=== PATIENT | female | born 1960 | race Caucasian/White ===

== ENCOUNTER 2018-01-06 14:00 | Outpatient (CLI) | payer BC ==
[2018-01-06 15:40] LABS: BASOPHILS # (AUTO) 0.1 X10'3 (0-0.2); BASOPHILS % (AUTO) 0.6 % (0-1); EOSINOPHILS # (AUTO) 0.4 X10'3 (0-0.9); EOSINOPHILS % (AUTO) 3.9 % (0-6); LYMPHOCYTES # (AUTO) 3.4 X10'3 (1.1-4.8); LYMPHOCYTES % (AUTO) 34.9 % (21-51); MEAN CORPUSCULAR HEMOGLOBIN 32.5 PG (27.0-31.0); MEAN CORPUSCULAR HGB CONC 33.9 % (33.0-36.5); MEAN CORPUSCULAR VOLUME 95.9 FL (78-98); MEAN PLATELET VOLUME 7.7 FL (7.4-10.4); MONOCYTES # (AUTO) 0.8 X10'3 (0-0.9); MONOCYTES % (AUTO) 8.4 % (2-12); NEUTROPHILS # (AUTO) 5.1 X10'3 (1.8-7.7); NEUTROPHILS % (AUTO) 52.2 % (42-75); PRE OP HEMATOCRIT 45.9 % (35.0-45.0); PRE OP HEMOGLOBIN 15.6 g/dL (12.0-16.0); PRE OP PLATELET COUNT 346 X10'3 (140-440); RED BLOOD COUNT 4.79 X10'6 (4.20-5.60); RED CELL DISTRIBUTION WIDTH 14.3 % (11.5-14.5)
[2018-01-06 15:41] LABS: CLARITY,URINE SLIGHTLY CLOUDY (Clear); COLOR,URINE YELLOW (Yellow); GLUCOSE, URINE NEGATIVE (Neg); KETONES,URINE NEGATIVE (Neg); LEUKOCYTE ESTERASE ,URINE SMALL (Neg); NITRITES, URINE POSITIVE (Neg); OCCULT BLOOD,URINE SMALL (Neg); PH,URINE 5.5 (4.8-8.0); PROTEIN,URINE NEGATIVE (Neg); UROBILINOGEN,URINE 0.2 E.U/dL (0.2-1.0)
[2018-01-06 15:53] LABS: UA COLLECTION TYPE CLN CATCH MIDSTREAM
[2018-01-06 15:54] LABS: BACTERIA,URINE 3+ /HPF (Neg); MUCUS STRANDS NONE SEEN /LPF (Neg); RBC,URINE NONE SEEN /HPF (0-2); SQUAMOUS EPITHELIAL CELL,UR MODERATE /LPF (FEW); WBC,URINE 0-4 /HPF (0-4)
[2018-01-06 15:56] LABS: ALBUMIN 3.4 G/DL (3.4-5.0); ALBUMIN/GLOBULIN RATIO 0.9 (1.1-1.5); ALKALINE PHOSPHATASE 85 IU/L (46-116); BLOOD UREA NITROGEN 13 MG/DL (7-18); BUN/CREATININE RATIO 14.8 (6.6-38.0); CALCIUM 9.3 MG/DL (8.5-10.1); CHLORIDE 105 MMOL/L (99-107); CREATININE 0.88 MG/DL (0.40-0.90); PRE OP ALT 25 U/L (30-65); PRE OP ANION GAP 4 (8-16); PRE OP AST 16 U/L (10-37); PRE OP BILIRUB, TOTAL 0.2 MG/DL (0.0-1.0); PRE OP GLUCOSE 107 MG/DL (70-104); PRE OP POTASSIUM 4.2 MMOL/L (3.4-5.1); PRE OP SODIUM 141 MMOL/L (135-145); TOTAL CARBON DIOXIDE 32.2 MMOL/L (24-32); TOTAL PROTEIN 7.3 G/DL (6.4-8.2); eGFR 66 ML/MIN
[2018-01-06] MEDS ORDERED: SOLI10TA2 PO (16:29)
[2018-01-06] MEDS ORDERED: AMIT-1 PO (16:29)
[2018-01-06] MEDS ORDERED: TRAUMEEL (16:29)
[2018-01-06] MEDS ORDERED: ESTR0.6261 PO (16:29)
[2018-01-06] MEDS ORDERED: DICL100G15 TOP (16:29)
[2018-01-06] MEDS ORDERED: PREVCR VG (16:29)
[2018-01-06] MEDS ORDERED: CALC-1197 PO (16:29)
[2018-01-06] MEDS ORDERED: PREG100C PO (16:29)
[2018-01-06] MEDS ORDERED: CELE-85 PO (16:29)
[2018-01-06] MEDS ORDERED: ASPI-611 PO (16:29)
[2018-01-06] MEDS ORDERED: TRAM300T23 PO (16:29)
[2018-01-06] MEDS ORDERED: COL RITE PO (16:29)
[2018-01-06] MEDS ORDERED: CLOB15CR4 TOP (16:29)
[2018-01-06] MEDS ORDERED: MULT-269 PO (16:29)
[2018-01-06] MEDS ORDERED: DULO60CA64 PO (16:29)
[2018-01-06] MEDS ORDERED: LEVO75TA PO (16:29)
[2018-01-06] MEDS ORDERED: CALC625T (16:29)
[2018-01-06] MEDS ORDERED: BACL10TA2 (16:29)
== END 2018-01-06 23:59 | disposition home or self-care (01) ==
LOC: PRE-OP 14:00 → EDSTATUS 14:10 → PRE-OP 23:59 → EDSTATUS 01-12 10:30
PROVIDERS: ATTEND Orthopaedic Surgery
DX: Z01.818 Encounter for other preprocedural examination (principal); F17.200 Nicotine dependence, unspecified, uncomplicated; R79.89 Other specified abnormal findings of blood chemistry; Z96.612 Presence of left artificial shoulder joint
CPT/HCPCS: 36415; 80053; 81001; 85025; 85610; 85730; 87070; 87077; 87088; 87186

== ENCOUNTER 2018-02-02 11:10 | Inpatient (IN) | payer BC ==
[2018-01-27 15:38] LABS: BASOPHILS % (AUTO) 0.4 % (0-1); EOSINOPHILS # (AUTO) 0.4 X10'3 (0-0.9); EOSINOPHILS % (AUTO) 3.6 % (0-6); LYMPHOCYTES # (AUTO) 3.3 X10'3 (1.1-4.8); LYMPHOCYTES % (AUTO) 32.9 % (21-51); MEAN CORPUSCULAR HEMOGLOBIN 32.9 PG (27.0-31.0); MEAN CORPUSCULAR HGB CONC 33.8 % (33.0-36.5); MEAN CORPUSCULAR VOLUME 97.1 FL (78-98); MEAN PLATELET VOLUME 7.7 FL (7.4-10.4); MONOCYTES # (AUTO) 0.8 X10'3 (0-0.9); MONOCYTES % (AUTO) 7.8 % (2-12); NEUTROPHILS # (AUTO) 5.5 X10'3 (1.8-7.7); NEUTROPHILS % (AUTO) 55.3 % (42-75); PRE OP HEMOGLOBIN 15.2 g/dL (12.0-16.0); PRE OP PLATELET COUNT 322 X10'3 (140-440); RED BLOOD COUNT 4.63 X10'6 (4.20-5.60); RED CELL DISTRIBUTION WIDTH 14.5 % (11.5-14.5)
[2018-01-27 16:03] LABS: ALBUMIN 3.3 G/DL (3.4-5.0); ALBUMIN/GLOBULIN RATIO 0.9 (1.1-1.5); ALKALINE PHOSPHATASE 86 IU/L (46-116); BLOOD UREA NITROGEN 15 MG/DL (7-18); BUN/CREATININE RATIO 16.3 (6.6-38.0); CALCIUM 8.8 MG/DL (8.5-10.1); CHLORIDE 105 MMOL/L (99-107); CREATININE 0.92 MG/DL (0.40-0.90); PRE OP ALT 22 U/L (30-65); PRE OP ANION GAP 9 (8-16); PRE OP AST 21 U/L (10-37); PRE OP BILIRUB, TOTAL 0.3 MG/DL (0.0-1.0); PRE OP GLUCOSE 107 MG/DL (70-104); PRE OP SODIUM 143 MMOL/L (135-145); TOTAL CARBON DIOXIDE 28.7 MMOL/L (24-32); TOTAL PROTEIN 6.9 G/DL (6.4-8.2); eGFR 63 ML/MIN
[2018-02-02] VITALS (21 sets, daily range): BP systolic 84–147; BP diastolic 44–89
[~2018-02-02] VITALS: Ht 172.7 cm; Wt 106.6 kg
[~2018-02-02 11:10] MED LIST: AMIT-189 PO; ASPI-611 PO; CALC-1197 PO; CELE-85 PO; DILT240C96 PO; DOCU250C4 PO; DULO60CA64 PO; ESTR0.6261 PO; LEVO75TA PO; MULT-269 PO; PREG100C PO; SOLI10TA2 PO; TRAM300T23 PO; acetaminophen 325mg tablet PO ONE; ceFAZolin inj. 2,000 MG in normal saline 100ml IV soln 100 ML IV ONE; famotidine 20mg tablet PO ONE; gabapentin 300mg capsule PO ONE; metoclopramide 5 mg/ml inj IV ONE; oxyCODONE SR 10mg (sust. release) tab PO ONE; ringers solution, lacted 1,000 ML IV SCH; tranexamic acid inj. 1,000 MG in normal saline 100ml IV soln 90 ML IV ONE; vancomycin inj 1,500 MG in normal saline 300ml IV soln IV ONE
[2018-02-02] MEDS ORDERED: desflurane 240ml liquid inh. IH ONE (13:56)
[2018-02-02] MEDS ORDERED: BUPIVAcaine/PF 7.5mg/ml (0.75%) 10ml vial ONE (14:05)
[2018-02-02] MEDS ORDERED: fentaNYL/PF 50MCG/1 ML 2ML syringe ONE (14:06)
[2018-02-02] MEDS ORDERED: midazolam 2 mg/2 ml injection ONE (14:08)
[2018-02-02] MEDS ORDERED: LIDOcaine 2% 5ml jelly ONE (14:17)
[2018-02-02] MEDS ORDERED: rocuronium 10mg/ml inj IV ONE (14:39)
[2018-02-02] MEDS ORDERED: propofol inj 20 ML IV ONE (14:39)
[2018-02-02] MEDS ORDERED: 0.9 % SODIUM CHLORIDE 10 ML VIAL ONE ×2 (14:39)
[2018-02-02] MEDS ORDERED: dexamethasone sod phosphate 4mg/ml inj. ONE (14:39)
[2018-02-02] MEDS ORDERED: LIDOcaine 1%/PF (10mg/ml) 5ml vial ONE (14:39)
[2018-02-02] MEDS ORDERED: ePHEDrine 50MG/ML INJ. ONE (14:40)
[2018-02-02] MEDS ORDERED: morphine 10mg/ml inj. ONE (15:03)
[2018-02-02] MEDS: ceFAZolin 1000mg inj ONE ×2 (15:33→15:34)
[2018-02-02] MEDS ORDERED: Thrombin (Bovine) 5,000 unit vial TP ONE (15:40)
[2018-02-02] MEDS ORDERED: vancomycin 1,000mg inj ONE (15:56)
[2018-02-02] MEDS ORDERED: magnesium hydroxide 30ml (MOM) UD suspension PO PRN (16:20)
[2018-02-02] MEDS ORDERED: diphenhydrAMINE 25mg capsule PO PRN ×2 (16:20)
[2018-02-02] MEDS ORDERED: oxyCODONE IR 5mg (immed. release) tablet PO PRN ×2 (16:20)
[2018-02-02] MEDS ORDERED: HYDROmorphone inj. 0.5 MG/0.5 ML DISP.SYRIN IV PRN ×2 (16:20)
[2018-02-02] MEDS ORDERED: ondansetron/PF 4mg/2ml inj IV PRN (16:20)
[2018-02-02] MEDS ORDERED: bisacodyl 10mg suppository rectal RC PRN (16:20)
[2018-02-02] MEDS ORDERED: acetaminophen 325mg tablet PO PRN (16:20)
[2018-02-02] MEDS ORDERED: vancomycin/NS 1 GM ADD-VANTAGE 250 ML IV SCH (20:00)
[2018-02-02] MEDS ORDERED: HYDROmorphone 1 mg/ml syringe IV PRN ×2 (20:17)
[2018-02-02] MEDS: acetaminophen 325mg tablet PO SCH (20:54)
[2018-02-02] MEDS: pregabalin 25mg capsule PO SCH (20:54)
[2018-02-02] MEDS: duloxetine 30mg CAPSULE.DR PO SCH (20:54)
[2018-02-02] MEDS: potassium cl 20mEq in 1/2 NS 1,000 ML IV SCH (20:54)
[2018-02-02] MEDS: gabapentin 300mg capsule PO SCH (20:55)
[2018-02-02] MEDS ORDERED: sennosides 8.6mg tablet PO SCH (21:00)
[2018-02-02] MEDS ORDERED: amitryptiline 50mg tablet PO SCH (21:00)
[2018-02-02] MEDS: ceFAZolin 1GM/D5W- ADD-VANTAGE 50 ML IV SCH (23:08)
[2018-02-03 02:00] VITALS: BP 98/53
[2018-02-03] MEDS: acetaminophen 325mg tablet PO SCH ×2 (02:00→07:53)
[2018-02-03 05:00] VITALS: BP 91/57
[2018-02-03 05:52] LABS: BASOPHILS % (AUTO) 0.3 % (0-1); EOSINOPHILS % (AUTO) 0.1 % (0-6); HEMATOCRIT 40.5 % (35.0-45.0); HEMOGLOBIN 13.9 g/dl (12.0-16.0); LYMPHOCYTES # (AUTO) 1.8 X10'3 (1.1-4.8); LYMPHOCYTES % (AUTO) 13.3 % (21-51); MEAN CORPUSCULAR HGB CONC 34.3 % (33.0-36.5); MEAN CORPUSCULAR VOLUME 96.2 FL (78-98); MEAN PLATELET VOLUME 7.7 FL (7.4-10.4); MONOCYTES # (AUTO) 0.7 X10'3 (0-0.9); MONOCYTES % (AUTO) 5.3 % (2-12); NEUTROPHILS # (AUTO) 10.9 X10'3 (1.8-7.7); PLATELET COUNT 260 X10'3 (140-440); RED BLOOD COUNT 4.21 X10'6 (4.20-5.60); RED CELL DISTRIBUTION WIDTH 14.6 % (11.5-14.5); WHITE BLOOD COUNT 13.5 X10'3 (4.5-11.0)
[2018-02-03] MEDS ORDERED: levoTHYROXINE 75mcg tablet PO SCH (07:00)
[2018-02-03] MEDS: ceFAZolin 1GM/D5W- ADD-VANTAGE 50 ML IV SCH (07:50)
[2018-02-03] MEDS: pregabalin 25mg capsule PO SCH (07:52)
[2018-02-03] MEDS: duloxetine 30mg CAPSULE.DR PO SCH (07:52)
[2018-02-03] MEDS: gabapentin 300mg capsule PO SCH (07:52)
[2018-02-03] MEDS ORDERED: diltiazem CD 120mg capsule (once-daily) PO SCH (08:00)
[2018-02-03] MEDS ORDERED: celeCOXIB 100mg capsule PO SCH ×2 (08:00→20:00)
[2018-02-03] MEDS ORDERED: calcium carbonate/vitamin D3 tablet PO SCH (08:00)
[2018-02-03] MEDS ORDERED: enoxaparin 40mg/0.4ml syringe SQ SCH (08:00)
[2018-02-03] MEDS: potassium cl 20mEq in 1/2 NS 1,000 ML IV SCH ×2 (08:01→08:16)
[2018-02-03] MEDS ORDERED: estrogen, conjugated 0.625mg tablet PO SCH (20:00)
[2018-02-04] MEDS ORDERED: acetaminophen 325mg tablet PO PRN (16:20)
== END 2018-02-03 13:07 | disposition home or self-care (01) | DRG 483 ==
LOC: PAS IN 11:10 → EDSTATUS 14:30 → ORTHO 4S 17:50
PROVIDERS: ADMIT Orthopaedic Surgery; ATTEND Orthopaedic Surgery
PROC: 3E0T3BZ Introduction of Anesthetic Agent into Peripheral Nerves and Plexi, Percutaneous Approach (ICD-10-PCS; 2018-02-02)
PROC: 0RRK0JZ Replacement of Left Shoulder Joint with Synthetic Substitute, Open Approach (ICD-10-PCS; principal; 2018-02-02 13:56)
DX: M19.012 Primary osteoarthritis, left shoulder (principal); Z88.1 Allergy status to other antibiotic agents; Z88.5 Allergy status to narcotic agent; Z79.899 Other long term (current) drug therapy; Z79.82 Long term (current) use of aspirin
CPT/HCPCS: 0232T; Z7506; 36415; 73020; 80053; 84443; 85025; 87070; 93005; 97110; 97116; 97161; A4565; A7000; C1713; C1758; C1776; J0690; J1100; J1650; J2001; J2250; J2270; J2704; J2765; J3010; J3370; J3490; J7030; J7120

== ENCOUNTER 2021-07-30 06:36 | Inpatient (IN) | payer BC ==
[2021-07-21 15:47] LABS: BASOPHILS # (AUTO) 0.1 X10'3 (0-0.2); BASOPHILS % (AUTO) 1.1 % (0-1); EOSINOPHILS # (AUTO) 0.2 X10'3 (0-0.9); EOSINOPHILS % (AUTO) 2.8 % (0-6); LYMPHOCYTES % (AUTO) 34.3 % (21-51); MEAN CORPUSCULAR HEMOGLOBIN 32.2 PG (27.0-31.0); MEAN CORPUSCULAR HGB CONC 33.2 g/dL (33.0-36.5); MEAN PLATELET VOLUME 7.2 FL (7.4-10.4); MONOCYTES # (AUTO) 0.9 X10'3 (0-0.9); MONOCYTES % (AUTO) 10.4 % (2-12); NEUTROPHILS # (AUTO) 4.6 X10'3 (1.8-7.7); NEUTROPHILS % (AUTO) 51.4 % (42-75); PRE OP HEMATOCRIT 45.2 % (35.0-45.0); PRE OP PLATELET COUNT 345 X10'3 (140-440); RED BLOOD COUNT 4.66 X10'6 (4.20-5.60); RED CELL DISTRIBUTION WIDTH 14.5 % (11.5-14.5)
[2021-07-21 16:08] LABS: ALBUMIN 3.5 G/DL (3.4-5.0); ALKALINE PHOSPHATASE 89 IU/L (46-116); BLOOD UREA NITROGEN 14 MG/DL (7-18); BUN/CREATININE RATIO 13.7 (6.6-38.0); CALCIUM 8.5 MG/DL (8.5-10.1); CHLORIDE 105 MMOL/L (99-107); CREATININE 1.02 MG/DL (0.40-0.90); PRE OP ALT 33 U/L (30-65); PRE OP ANION GAP 8 (8-16); PRE OP AST 21 U/L (10-37); PRE OP BILIRUB, TOTAL 0.4 MG/DL (0.0-1.0); PRE OP GLUCOSE 97 MG/DL (70-104); PRE OP POTASSIUM 4.2 MMOL/L (3.4-5.1); PRE OP SODIUM 142 MMOL/L (135-145); TOTAL CARBON DIOXIDE 29.1 MMOL/L (24-32); TOTAL PROTEIN 6.9 G/DL (6.4-8.2); eGFR 55 ML/MIN
[~2021-07-30] VITALS: Ht 172.7 cm; Wt 104.0 kg
[2021-07-30] VITALS (34 sets, daily range): BP systolic 98–133; BP diastolic 52–74
[~2021-07-30 06:36] MED LIST changes: -ASPI-611 PO; +ATOR-2 PO; -CALC-1197 PO; +CALC-1215 PO; +CLIN300C56 PO; -DOCU250C4 PO; +DOCU250C96 PO; -DULO60CA64 PO; +DULO60CA65 PO; +EZET10TA6 PO; +MAGN400C PO; +PSYL0.4C2 PO; -acetaminophen 325mg tablet PO ONE; +albuterol 2.5 MG/3 ML nebule NEB ONE; -ceFAZolin inj. 2,000 MG in normal saline 100ml IV soln 100 ML IV ONE; +cefazolin/dext.iso 2gm/50ml IV ONE; -gabapentin 300mg capsule PO ONE; -metoclopramide 5 mg/ml inj IV ONE; -oxyCODONE SR 10mg (sust. release) tab PO ONE; +tranexamic acid inj. 1,000 MG in 0.7% saline 100 ML PMX IV ONE; -tranexamic acid inj. 1,000 MG in normal saline 100ml IV soln 90 ML IV ONE; +vancomycin 1,500 MG in NS 300ml IV soln IV ONE; -vancomycin inj 1,500 MG in normal saline 300ml IV soln IV ONE
[2021-07-30] MEDS ORDERED: vancomycin 1,000mg inj ONE (07:26)
[2021-07-30] MEDS ORDERED: Thrombin (Bovine) 5,000 unit vial TP ONE (07:45)
[2021-07-30] MEDS ORDERED: fentaNYL/PF 50MCG/1 ML 2ML syringe ONE ×2 (08:19→09:31)
[2021-07-30] MEDS ORDERED: midazolam 1 mg/ML 2ml injection ONE ×2 (08:19→08:20)
[2021-07-30] MEDS ORDERED: sevoflurane 250ml liquid IH ONE (08:29)
[2021-07-30] MEDS ORDERED: ePHEDrine 50MG/ML INJ. ONE (08:29)
[2021-07-30] MEDS ORDERED: rocuronium 10mg/ml inj IV ONE (08:31)
[2021-07-30] MEDS ORDERED: acetaminophen 1,000mg/100ml IV 100 ML IV ONE (08:31)
[2021-07-30] MEDS ORDERED: neostigmine methylsulfate 1 MG/ML 10ml vial ONE (08:31)
[2021-07-30] MEDS ORDERED: propofol inj 20 ML IV ONE (08:31)
[2021-07-30] MEDS ORDERED: glycopyrrolate 0.2mg/ml inj ONE (08:31)
[2021-07-30] MEDS ORDERED: dexamethasone sod phosphate 4mg/ml inj. ONE (08:31)
[2021-07-30] MEDS ORDERED: ondansetron/PF 4mg/2ml inj ONE (08:31)
[2021-07-30] MEDS ORDERED: LIDOcaine 1%/PF 5ML 10 MG/ML VIAL ONE (08:31)
[2021-07-30] MEDS ORDERED: ROPIVAcaine 0.2%/PF PUMP/bolus 545 ML INTERSCALE SCH (09:20)
[2021-07-30] MEDS ORDERED: morphine 2 MG/ML inj. syringe IV PRN (09:20)
[2021-07-30] MEDS ORDERED: ROPIVAcaine 0.2% (10 MG/5 ML) BOLUS INJECTION INTERSCALE PRN (09:20)
[2021-07-30] MEDS ORDERED: ondansetron/PF 4mg/2ml inj IV PRN ×2 (09:20→12:55)
[2021-07-30] MEDS ORDERED: morphine 4 MG/ML inj SYRINge IV PRN (09:20)
[2021-07-30] MEDS ORDERED: proCHLORperazine 10 MG/2 ml inj IV PRN (09:20)
[2021-07-30] MEDS ORDERED: ringers solution, lacted 1,000 ML IV SCH (09:20)
[2021-07-30] MEDS ORDERED: meperidine/PF 25mg/ml syringe IV PRN ×3 (09:20)
--- NOTE | 2021-07-30 11:49 | NUR ---
Received from OR via ORTHO BED WITH [facility] , accompanied by Anesthesiologist SYED and report given by Anesthesiolgist. PATIENT WITH 18G PIV IN LEFT RUNNING LR AT 100. RIGHT SHOULDER DRESSING IS CDI. ONQ NERVE BLOCK SITE PRESENT. PATIENT WITH ANTERIOR SHOULDER WRAP WITH POWDER PACK PRESENT. PATIENT DENIES PAIN AND HAS + CAP REFILL AND +CSM, SCDS DONNED IN RR Addendum: 07/30/21 at 1206 by Mehran Ivy RN, RN Amended: Links added.
[2021-07-30] MEDS ORDERED: bisacodyl 10mg suppository rectal RC PRN (12:55)
[2021-07-30] MEDS ORDERED: HYDROmorphone inj. 0.5 MG/0.5 ML DISP.SYRIN IV PRN (12:55)
[2021-07-30] MEDS ORDERED: acetaminophen 325mg tablet PO PRN (12:55)
[2021-07-30] MEDS ORDERED: diphenhydrAMINE 25mg capsule PO PRN ×2 (12:55)
[2021-07-30] MEDS: potassium cl 20mEq in 1/2 NS 1,000 ML IV SCH ×2 (12:55→20:47)
[2021-07-30] MEDS ORDERED: oxyCODONE IR 5mg (immed. release) tablet PO PRN ×2 (12:55)
[2021-07-30] MEDS ORDERED: HYDROmorphone 1 mg/ml syringe IV PRN (12:55)
[2021-07-30] MEDS ORDERED: magnesium hydroxide 30ml (MOM) UD suspension PO PRN (12:55)
[2021-07-30] MEDS ORDERED: estrogen, conjugated 0.625mg tablet PO SCH ×2 (13:40→14:25)
[2021-07-30] MEDS ORDERED: PSYLLIUM HUSK 0.4 GM PO PRN (13:40)
--- NOTE | 2021-07-30 13:49 | NUR ---
PATIENT HAS MET ALL CRITERIA FOR TRANSFER TO THE SURGICAL FLOOR. VSS. DRESSINGS INTACT. BED LOW, CALL LIGHT PRESENT AND 2 RAILS UP. RN NOT PRESENT TO ACCEPT CARE OF PATIENT AND REPORT HAS BEEN CALLED. ALL QUESTIONS ANSWERED TO ACCEPTING RN. INFORMED KWAME SIDHU WHO TOOK REPORT THAT RN NOT PRESENT AT BEDSIDE. VSS. Addendum: 07/30/21 at 1358 by Mehran Salamanca - THEA RN Amended: Links added.
[2021-07-30] MEDS: acetaminophen 325mg tablet PO SCH ×2 (14:10→20:43)
[2021-07-30] MEDS: gabapentin 300mg capsule PO SCH ×2 (14:10→20:44)
[2021-07-30] MEDS: ceFAZolin/D5W- 1GM premix 50 ML IV SCH ×2 (15:54→23:45)
[2021-07-30] MEDS ORDERED: tranexamic acid 1gm/0.7% sal. 100 ML IV ONE (16:00)
[2021-07-30] MEDS ORDERED: vancomycin/NS 1 GM ADD-VANTAGE 250 ML IV SCH (20:00)
[2021-07-30] MEDS: pregabalin 25mg capsule PO SCH (20:41)
[2021-07-30] MEDS: docusate sod 250mg capsule PO SCH (20:44)
[2021-07-30] MEDS: duloxetine 30mg CAPSULE.DR PO SCH (20:45)
[2021-07-30] MEDS ORDERED: TRAMADOL 300 MG PO SCH (21:00)
[2021-07-30] MEDS ORDERED: clindamycin 150mg capsule PO SCH (21:00)
[2021-07-30] MEDS ORDERED: sennosides 8.6mg tablet PO SCH (21:00)
[2021-07-30] MEDS ORDERED: amitriptyline 25mg tablet PO SCH (21:00)
[2021-07-31] VITALS: BP_SYST 117; BP_SYST 120; BP_DIAS 66; BP_DIAS 69
[2021-07-31 01:00] VITALS: BP 120/70
[2021-07-31] MEDS: acetaminophen 325mg tablet PO SCH ×2 (02:00→07:48)
[2021-07-31 04:00] VITALS: BP 122/76
[2021-07-31] MEDS: potassium cl 20mEq in 1/2 NS 1,000 ML IV SCH (04:55)
[2021-07-31 06:00] VITALS: BP 137/86
--- NOTE | 2021-07-31 06:25 | NUR ---
Report given , questions answered and plan of care reviewed with Yenni SIDHU .
--- NOTE | 2021-07-31 06:25 | NUR ---
Patient in room [facility]. I have received report from ALFREDO Fontaine and had the opportunity to ask questions and assume patient care.
[2021-07-31 06:56] LABS: BASOPHILS # (AUTO) 0.1 X10'3 (0-0.2); BASOPHILS % (AUTO) 0.5 % (0-1); EOSINOPHILS % (AUTO) 0 % (0-6); HEMATOCRIT 42.6 % (35.0-45.0); HEMOGLOBIN 14.2 g/dl (12.0-16.0); LYMPHOCYTES # (AUTO) 1.9 X10'3 (1.1-4.8); LYMPHOCYTES % (AUTO) 13.6 % (21-51); MEAN CORPUSCULAR HEMOGLOBIN 32.4 PG (27.0-31.0); MEAN CORPUSCULAR HGB CONC 33.3 g/dL (33.0-36.5); MEAN CORPUSCULAR VOLUME 97.3 FL (78-98); MEAN PLATELET VOLUME 7.8 FL (7.4-10.4); MONOCYTES # (AUTO) 1.5 X10'3 (0-0.9); MONOCYTES % (AUTO) 10.9 % (2-12); NEUTROPHILS # (AUTO) 10.5 X10'3 (1.8-7.7); PLATELET COUNT 327 X10'3 (140-440); RED BLOOD COUNT 4.38 X10'6 (4.20-5.60); RED CELL DISTRIBUTION WIDTH 14.3 % (11.5-14.5)
[2021-07-31] MEDS: duloxetine 30mg CAPSULE.DR PO SCH (07:46)
[2021-07-31] MEDS: docusate sod 250mg capsule PO SCH (07:46)
[2021-07-31] MEDS: gabapentin 300mg capsule PO SCH (07:47)
[2021-07-31] MEDS: pregabalin 25mg capsule PO SCH (07:47)
[2021-07-31 07:50] LABS: ANION GAP 11 (8-16); CHLORIDE 107 MMOL/L (99-107); POTASSIUM 4.2 MMOL/L (3.5-5.1); SODIUM 142 MMOL/L (135-145); TOTAL CARBON DIOXIDE 23.8 MMOL/L (24-32)
[2021-07-31] MEDS ORDERED: diltiazem CD 120mg capsule (once-daily) PO SCH (08:00)
[2021-07-31] MEDS ORDERED: ezetimibe 10mg tablet PO SCH (08:00)
[2021-07-31] MEDS ORDERED: levoTHYROXINE 75mcg tablet PO SCH (08:00)
[2021-07-31] MEDS ORDERED: magnesium oxide 400mg tablet PO SCH (08:00)
[2021-07-31] MEDS ORDERED: atorvastatin 20mg tablet PO SCH (08:00)
[2021-07-31] MEDS ORDERED: oxybutynin 5mg tablet PO SCH (08:00)
[2021-07-31] MEDS ORDERED: celeCOXIB 100mg capsule PO SCH ×2 (08:00→20:00)
[2021-07-31] MEDS ORDERED: multivitamins, therapeutics tablet PO SCH (08:00)
[2021-07-31] MEDS ORDERED: aspirin 325mg tablet PO SCH (08:30)
[2021-07-31 11:22] VITALS: BP_SYST 124; BP_SYST 98; BP_DIAS 66; BP_DIAS 76
--- NOTE | 2021-07-31 11:31 | NUR ---
Primary joint consult: Pt s/p Arthroplasty of Reese burkett this admit. Pt unavaialble on assessment, High protein diet ed w/ RD contact info placed in pt chart. Addendum: 07/31/21 at [address] Amended: Links added.
[2021-08-01] MEDS ORDERED: acetaminophen 325mg tablet PO PRN (12:55)
[2021-08-01] MEDS ORDERED: estrogen, conjugated 0.625mg tablet PO SCH (14:25)
== END 2021-07-31 12:25 | disposition home or self-care (01) | DRG 483 ==
LOC: PAS IN 06:36 → SUR 3N 13:56
PROVIDERS: ADMIT Orthopaedic Surgery; ATTEND Orthopaedic Surgery
PROC: 3E0T3BZ Introduction of Anesthetic Agent into Peripheral Nerves and Plexi, Percutaneous Approach (ICD-10-PCS; 2021-07-30)
PROC: 3E0T33Z Introduction of Anti-inflammatory into Peripheral Nerves and Plexi, Percutaneous Approach (ICD-10-PCS; 2021-07-30)
PROC: 0RRJ0JZ Replacement of Right Shoulder Joint with Synthetic Substitute, Open Approach (ICD-10-PCS; principal; 2021-07-30 08:29)
DX: M19.011 Primary osteoarthritis, right shoulder (principal); M85.611 Other cyst of bone, right shoulder; Z79.899 Other long term (current) drug therapy
CPT/HCPCS: 36415; 73020; 80051; 80053; 82948; 84443; 85025; 87081; 93005; 94640; 94664; 94760; 97110; 97161; 97530; G0378; J0131; J0690; J1100; J2250; J2405; J2704; J2710; J2795; J3010; J3370; J3480; J3490; J7040; J7120; U0003; U0005

== ENCOUNTER 2022-03-09 15:40 | Emergency (ER) | payer BC ==
[~2022-03-09] VITALS: Ht 172.7 cm; Wt 106.8 kg
[~2022-03-09 15:40] MED LIST changes: -albuterol 2.5 MG/3 ML nebule NEB ONE; -cefazolin/dext.iso 2gm/50ml IV ONE; -famotidine 20mg tablet PO ONE; -ringers solution, lacted 1,000 ML IV SCH; -tranexamic acid inj. 1,000 MG in 0.7% saline 100 ML PMX IV ONE; -vancomycin 1,500 MG in NS 300ml IV soln IV ONE
[2022-03-09] MEDS ORDERED: ondansetron/PF 4mg/2ml inj IV ONE (18:25)
[2022-03-09] MEDS ORDERED: morphine 4 MG/ML inj SYRINge IV ONE ×2 (18:25→19:35)
[2022-03-09 18:57] LABS: BASOPHILS # (AUTO) 0.2 X10'3 (0-0.2); BASOPHILS % (AUTO) 1.1 % (0-1); EOSINOPHILS % (AUTO) 0.3 % (0-6); HEMATOCRIT 44.1 % (35.0-45.0); HEMOGLOBIN 14.7 g/dl (12.0-16.0); LYMPHOCYTES # (AUTO) 2.4 X10'3 (1.1-4.8); LYMPHOCYTES % (AUTO) 15.3 % (21-51); MEAN CORPUSCULAR HEMOGLOBIN 31.9 PG (27.0-31.0); MEAN CORPUSCULAR HGB CONC 33.3 g/dL (33.0-36.5); MEAN PLATELET VOLUME 7.7 FL (7.4-10.4); MONOCYTES # (AUTO) 0.9 X10'3 (0-0.9); MONOCYTES % (AUTO) 5.8 % (2-12); NEUTROPHILS # (AUTO) 12.3 X10'3 (1.8-7.7); NEUTROPHILS % (AUTO) 77.5 % (42-75); PLATELET COUNT 357 X10'3 (140-440); RED BLOOD COUNT 4.59 X10'6 (4.20-5.60); RED CELL DISTRIBUTION WIDTH 14.3 % (11.5-14.5); WHITE BLOOD COUNT 15.8 X10'3 (4.5-11.0)
[2022-03-09 19:15] LABS: ALANINE AMINOTRANSFERASE 28 U/L (12-78); ALBUMIN 3.7 G/DL (3.4-5.0); ALBUMIN/GLOBULIN RATIO 1.1 (1.1-1.5); ALKALINE PHOSPHATASE 94 IU/L (46-116); ANION GAP 12 (8-16); ASPARTATE AMINO TRANSFERASE 25 U/L (10-37); BILIRUBIN,TOTAL 0.8 MG/DL (0.1-1.0); BLOOD UREA NITROGEN 18 MG/DL (7-18); BUN/CREATININE RATIO 15.9 (6.6-38.0); CALCIUM 8.9 MG/DL (8.5-10.1); CHLORIDE 103 MMOL/L (99-107); CREATININE 1.13 MG/DL (0.40-0.90); GLUCOSE 133 MG/DL (70-104); MAGNESIUM 1.7 MG/DL (1.5-2.4); POTASSIUM 3.8 MMOL/L (3.5-5.1); SODIUM 139 MMOL/L (135-145); TOTAL CARBON DIOXIDE 23.7 MMOL/L (24-32); TOTAL PROTEIN 7.1 G/DL (6.4-8.2); eGFR 49 ML/MIN
[2022-03-09] MEDS ORDERED: propofol 10mg/ml 20ml vial IV ONE (20:50)
[2022-03-09 22:45] VITALS: BP 138/84
[2022-03-09] MEDS ORDERED: acetaminophen 325mg tablet PO ONE (22:55)
== END 2022-03-09 23:15 | disposition home or self-care (01) ==
LOC: ER 15:41
DX: S73.005A Unspecified dislocation of left hip, initial encounter (principal); Z88.5 Allergy status to narcotic agent; Z88.1 Allergy status to other antibiotic agents; Z79.899 Other long term (current) drug therapy; X50.9XXA Other and unspecified overexertion or strenuous movements or postures, initial encounter; Y93.89 Activity, other specified; Y92.89 Other specified places as the place of occurrence of the external cause; Y99.8 Other external cause status
CPT/HCPCS: 27256; 36415; 73502; 80053; 83735; 85025; 93005; 94799; 96374; 96375; 96376; 99152; 99153; 99285; J2270; J2405; J7030; A4620

== ENCOUNTER 2022-05-22 16:28 | Inpatient (IN) | payer BC ==
[~2022-05-22] VITALS: Ht 172.7 cm; Wt 104.5 kg
[2022-05-22] MEDS ORDERED: morphine 4 MG/ML inj SYRINge IV ONE (16:45)
[2022-05-22 17:31] LABS: BASOPHILS # (AUTO) 0.1 X10'3 (0-0.2); BASOPHILS % (AUTO) 0.5 % (0-1); EOSINOPHILS # (AUTO) 0.1 X10'3 (0-0.9); EOSINOPHILS % (AUTO) 0.5 % (0-6); HEMATOCRIT 47.4 % (35.0-45.0); HEMOGLOBIN 16.2 g/dl (12.0-16.0); LYMPHOCYTES # (AUTO) 2.7 X10'3 (1.1-4.8); LYMPHOCYTES % (AUTO) 23.1 % (21-51); MEAN CORPUSCULAR HEMOGLOBIN 32.9 PG (27.0-31.0); MEAN CORPUSCULAR HGB CONC 34.1 g/dL (33.0-36.5); MEAN CORPUSCULAR VOLUME 96.2 FL (78-98); MEAN PLATELET VOLUME 7.3 FL (7.4-10.4); MONOCYTES # (AUTO) 0.9 X10'3 (0-0.9); MONOCYTES % (AUTO) 7.6 % (2-12); NEUTROPHILS # (AUTO) 7.9 X10'3 (1.8-7.7); NEUTROPHILS % (AUTO) 68.3 % (42-75); PLATELET COUNT 340 X10'3 (140-440); RED BLOOD COUNT 4.92 X10'6 (4.20-5.60); WHITE BLOOD COUNT 11.5 X10'3 (4.5-11.0)
[2022-05-22] MEDS ORDERED: ketamine 10mg/ml 20ml inj vial IV ONE (18:00)
[2022-05-22] MEDS ORDERED: ondansetron/PF 4mg/2ml inj IV ONE (18:00)
[2022-05-22 18:02] LABS: ALANINE AMINOTRANSFERASE 23 U/L (12-78); ALBUMIN 3.5 G/DL (3.4-5.0); ALKALINE PHOSPHATASE 93 IU/L (46-116); ANION GAP 8 (8-16); ASPARTATE AMINO TRANSFERASE 24 U/L (10-37); BILIRUBIN,TOTAL 0.4 MG/DL (0.1-1.0); BLOOD UREA NITROGEN 12 MG/DL (7-18); CALCIUM 8.9 MG/DL (8.5-10.1); CHLORIDE 105 MMOL/L (99-107); GLUCOSE 99 MG/DL (70-104); POTASSIUM 4.3 MMOL/L (3.5-5.1); SODIUM 141 MMOL/L (135-145); TOTAL CARBON DIOXIDE 28.3 MMOL/L (24-32); TOTAL PROTEIN 7.1 G/DL (6.4-8.2); eGFR 73 ML/MIN
[2022-05-22] MEDS ORDERED: ketamine 50 mg/ml 10ml vial IV ONE (18:05)
[2022-05-22] MEDS ORDERED: LORazepam 2 mg/ml vial IV ONE (18:55)
[2022-05-22] MEDS ORDERED: diazepam inj 5 MG/ML inj. IV STA ×2 (19:10→19:16)
--- NOTE | 2022-05-22 19:24 | NUR ---
KETAMINE 50 MG IVP
--- NOTE | 2022-05-22 19:27 | NUR ---
LESS KETAMINE GIVEN THAN ORDERED. 100 MG IVP INITIALLY 50 MG IVP INTRAPROCEDURAL
--- NOTE | 2022-05-22 19:37 | NUR ---
SPOUSE JUST ARRIVED INTO ROOM. POC GIVEN TO THE SPOUSE.
[2022-05-22] MEDS ORDERED: HYDROmorphone inj. 0.5 MG/0.5 ML DISP.SYRIN IV PRN (19:55)
[2022-05-22] MEDS ORDERED: bisacodyl 10mg suppository rectal RC PRN (19:55)
[2022-05-22] MEDS ORDERED: magnesium Cl slow-release 64mg tablet PO PRN (19:55)
[2022-05-22] MEDS ORDERED: potassium CL 10mEq/100ml bag 100 ML IV PRN (19:55)
[2022-05-22] MEDS ORDERED: HYDROmorphone/PF 0.2 MG/ML SYRINGE IV PRN (19:55)
[2022-05-22] MEDS ORDERED: magnesium 4gm in 100ml NS 100 ML IV PRN (19:55)
[2022-05-22] MEDS ORDERED: POTASSIUM BICARB 20meq eff tab 20 MEQ TABLET.EFF PO PRN ×2 (19:55)
[2022-05-22] MEDS ORDERED: magnesium hydroxide 30ml (MOM) UD suspension PO PRN (19:55)
[2022-05-22] MEDS ORDERED: magnesium 2GM in 50ml NS 50 ML IV PRN (19:55)
[2022-05-22] MEDS ORDERED: normal saline 1000ml 1,000 ML IV SCH (19:55)
[2022-05-22] MEDS ORDERED: docusate sod 100mg capsule PO SCH (20:00)
[2022-05-22] MEDS ORDERED: K and/or MAG REPLACEMENT MC SCH (20:00)
[2022-05-22] MEDS ORDERED: PREMARIN VG (20:08)
[2022-05-22] MEDS ORDERED: CLOB15CR11 TOP (20:08)
[2022-05-22] MEDS ORDERED: BACL10TA PO (20:08)
[2022-05-22] MEDS ORDERED: DILT180C89 PO (20:08)
[2022-05-22] MEDS ORDERED: ASPI81TA52 PO (20:08)
[2022-05-22] MEDS ORDERED: LEVO112T52 PO (20:08)
[2022-05-22] MEDS ORDERED: NITR0.4T SL (20:08)
--- NOTE | 2022-05-22 20:13 | NUR ---
MATT, SPOUSE: [phone]
[2022-05-22] MEDS ORDERED: propofol 10mg/ml 20ml vial IV ONE ×2 (21:25)
--- NOTE | 2022-05-22 22:20 | NUR ---
Pt up to bedside commode. Did well. She is pleased it is "back in" spouse at bedside. Gave pt food and drink. She is sitting up and eating. Airway patent. AOx4.
--- NOTE | 2022-05-22 23:33 | NUR ---
Dr. Delong at the as her HR increased to [address] rhythm. Pt asymptomatic with it/pain 09/01. Visiting with her spouse. Sitting EOB. Ordered to give her a liter of NS. IVF infusing.
[2022-05-22] MEDS ORDERED: normal saline 1000ml 1,000 ML IV STA (23:34)
[2022-05-23 00:09] VITALS: BP 123/81
--- NOTE | 2022-05-23 00:14 | NUR ---
DR ARSHAD IS AWARE OF THE DC HEARTRATE. THE PATIENT DID RECEIVE THE LITER OF NS AND HAS DRANK 1200 CC OF ICE WATER PRIOR TO D/C AND HAS VOIDED X 2 POST PROCEDURE. PT IS FEELING FINE AND WANTING TO BE DC AND IS ASYMPTOMATIC WITH HER HEART RATE.
== END 2022-05-23 00:20 | disposition home or self-care (01) | DRG 561 ==
LOC: ER 16:28 → ED HOLD 19:57
PROVIDERS: ADMIT Internal Medicine; ATTEND Internal Medicine
PROC: 0SWBXJZ Revision of Synthetic Substitute in Left Hip Joint, External Approach (ICD-10-PCS; principal; 2022-05-22)
DX: T84.021A Dislocation of internal left hip prosthesis, initial encounter (principal); E03.9 Hypothyroidism, unspecified; E78.5 Hyperlipidemia, unspecified; G89.29 Other chronic pain; I10 Essential (primary) hypertension; F32.A Depression, unspecified; G60.0 Hereditary motor and sensory neuropathy; R32 Unspecified urinary incontinence; Y79.2 Prosthetic and other implants, materials and accessory orthopedic devices associated with adverse incidents; Z96.641 Presence of right artificial hip joint; Y92.89 Other specified places as the place of occurrence of the external cause; Z88.5 Allergy status to narcotic agent; Z88.8 Allergy status to other drugs, medicaments and biological substances
CPT/HCPCS: 36415; 73501; 73502; 80053; 83735; 85025; 94799; A4620; G0378; J2060; J2270; J2405; J2704; J3360; J3490; J7030

== ENCOUNTER 2022-06-29 21:59 | Emergency (ER) | payer BC ==
[~2022-06-29] VITALS: Ht 172.7 cm; Wt 106.8 kg
[~2022-06-29 21:59] MED LIST changes: -AMIT-189 PO; +AMIT-286 PO; +ASPI81TA52 PO; +BACL10TA PO; -CLIN300C56 PO; +CLOB15CR11 TOP; +DILT180C89 PO; -DILT240C96 PO; +LEVO112T52 PO; -LEVO75TA PO; +NITR0.4T SL; +PREMARIN VG
[2022-06-29] MEDS ORDERED: propofol 10mg/ml 20ml vial IV ONE (22:30)
[2022-06-30 00:52] VITALS: BP 129/76
== END 2022-06-30 01:12 | disposition home or self-care (01) ==
LOC: ER 21:59
DX: S72.092A Other fracture of head and neck of left femur, initial encounter for closed fracture (principal); Z88.1 Allergy status to other antibiotic agents; Z88.5 Allergy status to narcotic agent; Z79.82 Long term (current) use of aspirin; Z79.899 Other long term (current) drug therapy; X58.XXXA Exposure to other specified factors, initial encounter; Y93.89 Activity, other specified; Y92.89 Other specified places as the place of occurrence of the external cause; Y99.8 Other external cause status
CPT/HCPCS: 27265; 73501; 73502; 94760; 99152; 99285

== ENCOUNTER 2022-09-28 11:15 | Inpatient (IN) | payer BC ==
[~2022-09-28] VITALS: Ht 172.7 cm; Wt 104.0 kg
[~2022-09-28 11:15] MED LIST changes: -CALC-1215 PO; -DILT180C89 PO
[2022-09-28 16:10] LABS: BASOPHILS # (AUTO) 0.1 X10'3 (0-0.2); BASOPHILS % (AUTO) 0.9 % (0-1); EOSINOPHILS # (AUTO) 0.3 X10'3 (0-0.9); EOSINOPHILS % (AUTO) 2.7 % (0-6); LYMPHOCYTES # (AUTO) 3.3 X10'3 (1.1-4.8); LYMPHOCYTES % (AUTO) 34.2 % (21-51); MEAN CORPUSCULAR HEMOGLOBIN 32.9 PG (27.0-31.0); MEAN CORPUSCULAR HGB CONC 33.7 g/dL (33.0-36.5); MEAN CORPUSCULAR VOLUME 97.4 FL (78-98); MEAN PLATELET VOLUME 7.5 FL (7.4-10.4); MONOCYTES % (AUTO) 10.6 % (2-12); NEUTROPHILS % (AUTO) 51.6 % (42-75); PRE OP HEMOGLOBIN 15.9 g/dL (12.0-16.0); PRE OP PLATELET COUNT 342 X10'3 (140-440); RED BLOOD COUNT 4.83 X10'6 (4.20-5.60); RED CELL DISTRIBUTION WIDTH 14.2 % (11.5-14.5)
[2022-09-28 16:20] LABS: ALBUMIN 3.6 G/DL (3.4-5.0); ALBUMIN/GLOBULIN RATIO 1.1 (1.1-1.5); ALKALINE PHOSPHATASE 99 IU/L (46-116); BLOOD UREA NITROGEN 17 MG/DL (7-18); BUN/CREATININE RATIO 21.3 (6.6-38.0); CALCIUM 8.8 MG/DL (8.5-10.1); CHLORIDE 105 MMOL/L (99-107); PRE OP ALT 26 U/L (30-65); PRE OP ANION GAP 11 (8-16); PRE OP AST 21 U/L (10-37); PRE OP BILIRUB, TOTAL 0.3 MG/DL (0.0-1.0); PRE OP GLUCOSE 104 MG/DL (70-104); PRE OP SODIUM 141 MMOL/L (135-145); TOTAL CARBON DIOXIDE 25.1 MMOL/L (24-32); eGFR 72 ML/MIN
[2022-10-06] MEDS ORDERED: DILT-94 PO (10:45)
[2022-10-06] MEDS ORDERED: CALC-1072 PO (10:45)
[2022-10-07] VITALS (19 sets, daily range): BP systolic 110–164; BP diastolic 55–118
[2022-10-07] MEDS ORDERED: ringers solution, lacted 1,000 ML IV SCH ×2 (05:00→11:00)
[2022-10-07] MEDS ORDERED: vancomycin 1,500 MG in NS 300ml IV soln IV ONE (05:30)
[2022-10-07] MEDS ORDERED: ceFAZolin inj. 2,000 MG in dextrose 5%-water 100 ML IV ONE (05:30)
[2022-10-07] MEDS ORDERED: famotidine 20mg tablet PO ONE (05:30)
[2022-10-07] MEDS ORDERED: tranexamic acid inj. 1,000 MG in normal saline IV soln 100ML IV ONE (05:30)
--- NOTE | 2022-10-07 09:55 | NUR ---
PT ARRIVED FOR L SUSSY. SHE COMPLETED 5 DAYS OF [employer] SHOWERS AND OINTMENT. NEURO ASSESSMENT COMPLETED AND ARE FOLLOWS. PT HAS MUSCULAR DYSTROPHY AND R FOOT TURNS INWARD AND SHE WEARS A BRACE. BASELINE BILATERAL FOOT STRENGTH IS WEAK. PULSES STRONG AND MARKED ON LEFT PEDAL AND RIGHT POSTERIOR TIBIAL. SENSATION W/N/L. Addendum: 10/07/22 at 1313 by Lavern Pinon RN Amended: Links added.
[2022-10-07] MEDS ORDERED: vancomycin 1,000mg inj ONE (10:45)
[2022-10-07] MEDS ORDERED: fentaNYL/PF 50MCG/1 ML 2ML syringe ONE (10:51)
[2022-10-07] MEDS ORDERED: MIDAZolam 1 MG/ML 5ML VIAL ONE ×2 (10:51→12:19)
[2022-10-07] MEDS ORDERED: morphine 4 MG/ML inj SYRINge IV PRN (11:00)
[2022-10-07] MEDS ORDERED: fentaNYL/PF 50MCG/1 ML 2ML syringe IV PRN ×2 (11:00)
[2022-10-07] MEDS ORDERED: morphine 2 MG/ML inj. syringe IV PRN (11:00)
[2022-10-07] MEDS ORDERED: hydrALAZINE 20mg/ml inj. IV PRN (11:00)
[2022-10-07] MEDS ORDERED: ondansetron/PF 4mg/2ml inj IV PRN ×2 (11:00→13:45)
[2022-10-07] MEDS ORDERED: labetalol 20mg/4ml (5mg/ml) syringe IV PRN (11:00)
--- NOTE | 2022-10-07 13:30 | NUR ---
Received from OR via HOSPITAL BED, accompanied by Anesthesiologist and report given by MAXIMO Anesthesiologist. PT WAKING UP. VSS. DENIES PAIN. PT PRESENTS WITH PIV 20G RIGHT AC, LEFT HIP DRESSING C/D/I WITH ADDUCTOR PILLOW, DISTAL PULSES NOTED. REYNSOO CATHETER DRAINING CLEAR YELLOW URINE. Addendum: 10/07/22 at 1400 by Jose Alejandro Lebron RN Amended: Links added.
[2022-10-07] MEDS ORDERED: diphenhydrAMINE 25mg capsule PO PRN ×2 (13:45)
[2022-10-07] MEDS ORDERED: HYDROmorphone 1 mg/ml syringe IV PRN (13:45)
[2022-10-07] MEDS ORDERED: acetaminophen 325mg tablet PO PRN (13:45)
[2022-10-07] MEDS ORDERED: oxyCODONE IR 5mg (immed. release) tablet PO PRN (13:45)
[2022-10-07] MEDS ORDERED: magnesium hydroxide 30ml (MOM) UD suspension PO PRN (13:45)
[2022-10-07] MEDS ORDERED: HYDROmorphone inj. 0.5 MG/0.5 ML DISP.SYRIN IV PRN (13:45)
[2022-10-07] MEDS ORDERED: naloxone 0.4 mg/ml inj IV PRN (13:45)
[2022-10-07] MEDS ORDERED: bisacodyl 10mg suppository rectal RC PRN (13:45)
--- NOTE | 2022-10-07 15:15 | NUR ---
PATIENT HAS MET ALL CRITERIA FOR TRANSFER TO THE SURGICAL FLOOR. VSS. DRESSINGS INTACT. BED LOW, CALL LIGHT PRESENT AND 2 RAILS UP. RN PRESENT TO ACCEPT CARE OF PATIENT AND REPORT HAS BEEN CALLED. ALL QUESTIONS ANSWERED TO ACCEPTING RN. Addendum: 10/07/22 at 1527 by Jose Alejandro Lebron RN Amended: Links added.
[2022-10-07] MEDS: potassium cl 20mEq in 1/2 NS 1,000 ML IV SCH ×2 (15:35→21:45)
[2022-10-07] MEDS: acetaminophen 325mg tablet PO SCH ×2 (15:36→20:41)
[2022-10-07] MEDS: oxyCODONE IR 5mg (immed. release) tablet PO PRN ×2 (16:28→22:22)
[2022-10-07] MEDS: ceFAZolin/D5W- 1GM premix 50 ML IV SCH (16:28)
--- NOTE | 2022-10-07 16:33 | NUR ---
Provided teaching on IS, gave ice pack, instructed on callbell use, gave H2O
[2022-10-07] MEDS ORDERED: NORMAL SALINE IV ONE (17:00)
[2022-10-07] MEDS ORDERED: TRANEXAMIC ACID IV ONE (17:00)
[2022-10-07] MEDS ORDERED: vancomycin/NS 1 GM ADD-VANTAGE 250 ML IV SCH (20:00)
[2022-10-07] MEDS: gabapentin 300mg capsule PO SCH (20:41)
[2022-10-07] MEDS ORDERED: sennosides 8.6mg tablet PO SCH (21:00)
[2022-10-08] MEDS: ceFAZolin/D5W- 1GM premix 50 ML IV SCH (00:27)
[2022-10-08 02:00] VITALS: BP 136/67
[2022-10-08] MEDS: acetaminophen 325mg tablet PO SCH ×2 (02:26→08:07)
[2022-10-08] MEDS: oxyCODONE IR 5mg (immed. release) tablet PO PRN (05:11)
[2022-10-08] MEDS: potassium cl 20mEq in 1/2 NS 1,000 ML IV SCH (05:45)
[2022-10-08 06:00] VITALS: BP 116/80
--- NOTE | 2022-10-08 06:00 | NUR ---
dcd f/c no complications noted.pt alyx procedure.
--- NOTE | 2022-10-08 06:39 | NUR ---
Patient in room [facility]. I have received report from November and had the opportunity to ask questions and assume patient care.
[2022-10-08] MEDS ORDERED: enoxaparin 40mg/0.4ml syringe SQ SCH (08:00)
[2022-10-08] MEDS: gabapentin 300mg capsule PO SCH (08:06)
[2022-10-08] MEDS ORDERED: SULF1TAB49 PO (08:33)
[2022-10-08 11:00] VITALS: BP 132/86
--- NOTE | 2022-10-08 12:18 | NUR ---
Patient's IV was removed. Catheter intact when removed. Hemostasis achieved. DSD applied.
--- NOTE | 2022-10-08 12:41 | NUR ---
Reviewed discharge instructions with patient and spouse. Patient verbalized understanding. Assisted patient with dressing, gathered her belongings and then patient was wheeled downstairs to be driven home by her spouse. Patient's spouse has already picked up her post op meds and patient has a follow up appt. scheduled for 10/19.
[2022-10-08] MEDS ORDERED: celeCOXIB 100mg capsule PO SCH (20:00)
[2022-10-09] MEDS ORDERED: acetaminophen 325mg tablet PO PRN (13:45)
== END 2022-10-08 12:37 | disposition home or self-care (01) | DRG 466 ==
LOC: PAS IN 10-07 09:33 → SUR 3N 10-07 15:26
PROVIDERS: ADMIT Orthopaedic Surgery; ATTEND Orthopaedic Surgery
PROC: 0SPB09Z Removal of Liner from Left Hip Joint, Open Approach (ICD-10-PCS; 2022-10-07)
PROC: 0SPS0JZ Removal of Synthetic Substitute from Left Hip Joint, Femoral Surface, Open Approach (ICD-10-PCS; 2022-10-07)
PROC: 0SUE09Z Supplement Left Hip Joint, Acetabular Surface with Liner, Open Approach (ICD-10-PCS; 2022-10-07)
PROC: 0SRS0JZ Replacement of Left Hip Joint, Femoral Surface with Synthetic Substitute, Open Approach (ICD-10-PCS; principal; 2022-10-07 11:00)
DX: T84.021A Dislocation of internal left hip prosthesis, initial encounter (principal); S72.112A Displaced fracture of greater trochanter of left femur, initial encounter for closed fracture; T84.061A Wear of articular bearing surface of internal prosthetic left hip joint, initial encounter; Y79.2 Prosthetic and other implants, materials and accessory orthopedic devices associated with adverse incidents; E03.9 Hypothyroidism, unspecified; E66.9 Obesity, unspecified; Z68.34 Body mass index [BMI] 34.0-34.9, adult; Y92.89 Other specified places as the place of occurrence of the external cause
CPT/HCPCS: Z7506; Z7508; 36415; 80053; 82948; 85025; 86885; 86900; 86901; 87070; 87075; 87081; 97116; 97161; A4215; A4618; A6258; A6449; A7000; C1713; C1758; C1776; G0378; J0690; J1650; J2250; J3010; J3370; J3480; J3490; J7040; J7060; J7120

== ENCOUNTER 2025-01-17 09:44 | Inpatient (IN) | payer MEDICARE, BC ==
[2025-01-08 15:07] LABS: BASOPHILS # (AUTO) 0.1 X10'3 (0-0.2); BASOPHILS % (AUTO) 1.1 % (0-1); EOSINOPHILS # (AUTO) 0.2 X10'3 (0-0.9); EOSINOPHILS % (AUTO) 2.1 % (0-6); LYMPHOCYTES # (AUTO) 2.8 X10'3 (1.1-4.8); LYMPHOCYTES % (AUTO) 27.6 % (21-51); MEAN CORPUSCULAR HGB CONC 34.1 g/dL (33.0-36.5); MEAN CORPUSCULAR VOLUME 90.9 FL (78-98); MEAN PLATELET VOLUME 6.9 FL (7.4-10.4); NEUTROPHILS # (AUTO) 6.1 X10'3 (1.8-7.7); NEUTROPHILS % (AUTO) 59.2 % (42-75); PRE OP HEMATOCRIT 43.2 % (35.0-45.0); PRE OP HEMOGLOBIN 14.7 g/dL (12.0-16.0); PRE OP PLATELET COUNT 426 X10'3 (140-440); PRE OP WHITE BLOOD COUNT 10.2 10'3 (4.8-10.8); RED BLOOD COUNT 4.75 X10'6 (4.20-5.60); RED CELL DISTRIBUTION WIDTH 14.6 % (11.5-14.5)
[2025-01-08 15:24] LABS: ALBUMIN/GLOBULIN RATIO 0.8 (1.1-1.5); ALKALINE PHOSPHATASE 115 IU/L (46-116); BLOOD UREA NITROGEN 13 MG/DL (7-18); BUN/CREATININE RATIO 19.1 (10.0-20.0); CALCIUM 8.3 MG/DL (8.5-10.1); CHLORIDE 105 MMOL/L (99-107); CREATININE 0.68 MG/DL (0.40-0.90); PRE OP ALT 25 U/L (30-65); PRE OP ANION GAP 10 (8-16); PRE OP AST 22 U/L (10-37); PRE OP BILIRUB, TOTAL 0.3 MG/DL (0.0-1.0); PRE OP GLUCOSE 117 MG/DL (70-104); PRE OP POTASSIUM 3.7 MMOL/L (3.4-5.1); PRE OP SODIUM 142 MMOL/L (135-145); THYROID STIMULATING HORMONE 4.19 ulU/ml (0.34-4.50); TOTAL PROTEIN 6.8 G/DL (6.4-8.2); eGFR 87 ML/MIN
[2025-01-17] VITALS (16 sets, daily range): BP systolic 92–143; BP diastolic 57–86; PULSE 61–84; RESP 10–16; TEMP 98.1–99.1; O2SAT 90–99
[~2025-01-17] VITALS: Ht 170.2 cm; Wt 112.9 kg
[2025-01-17] MEDS: ceFAZolin 2gm/dext,iso 50mL 50 ML IV ONE (05:30)
[2025-01-17] MEDS: tranexamic acid 1gm/0.7% sal. 100 ML IV ONE (05:30)
[~2025-01-17 09:44] MED LIST changes: -AMIT-286 PO; +AMIT25TA9 PO; +CALC-1072 PO; +CELE-127 PO; -CELE-85 PO; +DILT-94 PO; +DOCU-395 PO; -DOCU250C96 PO; -LEVO112T52 PO; +LEVO125T PO; -NITR0.4T SL; -PREMARIN VG; +PREVCR VG; +tetracaine 1% (10mg/ml) pres. free inj. ONE
[2025-01-17] MEDS: famotidine 20mg tablet PO ONE (10:48)
[2025-01-17] MEDS: ringers solution, lacted 1,000 ML IV SCH ×2 (10:49→19:21)
[2025-01-17] MEDS: VANCOMYCIN/H2O 1.5g/300mL PB 300 ML IV ONE (10:50)
[2025-01-17] MEDS ORDERED: vancomycin 1,000mg inj ONE (12:44)
[2025-01-17] MEDS ORDERED: fentaNYL/PF 50MCG/1 ML 2ML syringe ONE (13:07)
[2025-01-17] MEDS ORDERED: MIDAZolam 1mg/ml 10ml vial ONE (13:36)
[2025-01-17] MEDS ORDERED: hydrALAZINE 20mg/ml inj. IV PRN (14:10)
[2025-01-17] MEDS ORDERED: ondansetron/PF 4mg/2ml inj IV PRN ×2 (14:10→17:25)
[2025-01-17] MEDS ORDERED: labetalol 20mg/4ml (5mg/ml) syringe IV PRN (14:10)
[2025-01-17] MEDS ORDERED: ROPIVAcaine 0.2% (10 MG/5 ML) BOLUS INJECTION ADDCANAL PRN ×2 (14:10→17:10)
[2025-01-17] MEDS ORDERED: fentaNYL/PF 50MCG/1 ML 2ML syringe IV PRN ×2 (14:10)
[2025-01-17] MEDS ORDERED: ketorolac trometh 30MG/ML vial 30 MG/ML VIAL ONE (15:06)
[2025-01-17] MEDS ORDERED: BUPIVAcaine/PF 7.5mg/ml (0.75%) 10ml vial ONE (17:01)
[2025-01-17] MEDS ORDERED: ROPIVAcaine 0.5% (5mg/ml) 30ml vial ONE (17:01)
--- NOTE | 2025-01-17 17:10 | ANESTHESIA RECORDS ---
Nerve Block Providers to CC ~ Diagnosis: Nerve Block requested by: VIRGINIA MARTINEZ MD Neuraxial/Peripheral Nerve Block requested for Post-operative analgesia by Physician above DIAGNOSIS: Post-operative pain. (Body Area) Shoulder: [ ] Arm: [ ] Hand: [ ] Hip: [ ] Knee: [ Left ] Ankle: [ ] Foot: [ ] Leg: [ ] Abdomen: [ ] Other: [ ] Post-operative pain expected to be/is inadequately managed by oral or IV medicines. Regional anesthetic expected to facilitate rehabilitation and/or discharge from facility. Other:[ ] Procedure Performed: Femoral / Saphenous: Left Time out Done?: Yes Time of Time out: 17:10 Procedure Details: PROCEDURE DETAILS: Risks, benefits and alternatives explained Informed consent obtained, and patient wishes to proceed Conscious sedation with indicated monitors Patient positioned, pertinent anatomy defined, sterile technique used Needle used: [ ] 3 1/8 inch Stimuplex Ultra 22ga [ ] 4 inch Stimuplex Ultra 20ga [x] 6 inch Stimuplex Ultra 20ga [x ] 6 inch, Quikbloc over the needle catheter set 20ga [ ] 4 inch Quikbloc over the needle catheter set 20ga [ ]Other: [ ] Loss of twitch @ [____N/A ]mA [x ] Single Injection & [x ] Catheter Ultrasound Guidance Used: [x ] Yes [ ] No Attempts:[ once ] Medicines injected: [ ]Clonidine Amt:[ ] [ x ]Dexamethasone Amt:[ 4 mgs ] [x ]Ropivacaine Amt:[_0.5% 26 cc ] [ x ]Bupivacaine Amt:[____0.375% 16 cc ] [ ]Lidocaine Amt:[ ] [ ]Exparel 1.33%:[ ] [ ]Epinephrine Amt[ ] [ ]Other: [ ] Intermittent aspiration during local anesthetic administration No symptoms of intraneural or intravenous injection Patient tolerated procedure well Comments Lt Adductor Canal continuous nerve block using QUIKBLOC over the needle catheter set. Done under spinal anesthesia at the end of the procedure. Pt supine with Lt leg rotated to Lt slightly . Easy visualization of Adductor Canal with ultra sound anterolateral to Femoral artery in the middle of thigh. Onq # 16 QUIKBLOC catheter over needle advanced into the Adductor canal 5 cc of local anesthetic injected slowly. Visualization of local anesthetic spreading in the sheath. 15 more ccs injected. . 5 cc of local anesthetic is injected into nerve to Vastus medialis and few cc is injected into ant femoral cutaneous nerves Needle taken out and catheter secured at the skin with steri strips and opsite. Meaningful conversation throughout. No Pain or discomfort during inject ion. Pt tolerated procedure well. Will run continuous infusion through catheter postop. Lt IPACK Block: (Infiltration Between Popliteal Artery and Capsule of the Knee). Knee is flexed with the patient in supine position. Using a curvilinear probe placed under the knee, Popliteal vessels are identified. Block needle is inserted from Medial part of the knee about the Patellar level in between popliteal vessels and femoral condyles (capsule of knee) and 20 ml of local anesthetic solution is infiltrated in the space. TORIN HERNANDEZ MD January 17, 2025 17:10
[2025-01-17] MEDS ORDERED: HYDROmorphone 1 mg/ml syringe IV PRN (17:25)
[2025-01-17] MEDS ORDERED: bisacodyl 10mg suppository rectal RC PRN (17:25)
[2025-01-17] MEDS ORDERED: naloxone 0.4 mg/ml inj IV PRN (17:25)
[2025-01-17] MEDS ORDERED: magnesium hydroxide 30ml (MOM) UD suspension PO PRN (17:25)
[2025-01-17] MEDS ORDERED: PCA WASTE DOCUMENTATION 1 MG ML MC SCH (17:25)
[2025-01-17] MEDS ORDERED: diphenhydrAMINE 25mg capsule PO PRN ×2 (17:25)
[2025-01-17] MEDS ORDERED: HYDROmorphone inj. 0.5 MG/0.5 ML DISP.SYRIN IV PRN (17:25)
--- NOTE | 2025-01-17 17:47 | OPERATIVE REPORT ---
Operative Report Providers to ~ Date of Procedure: January 17, 2025 Pre-Operative Diagnosis: Severe degenerative joint disease left knee with 30 degree valgus deformity Post-Operative Diagnosis SAME as PRE-Op Procedure Performed Left total knee arthroplasty cemented Surgeon: Virginia Martinez MD Peanut Butter Maker Giles Kan MD Anesthesiologist: Osiel Mensah Type of Anesthesia: Other (Adductor canal block with on Q pump and I pack block), Spinal Findings: Severe tricompartmental erupted degenerative joint disease valgus deformity 30 Complications None Prosthetics\Implants used: Filipe persona knee systems left posterior stabilize size 10 standard femur cemented. Persona left size F tibia cemented. Persona +30 mm stem extension for the tibial component. Persona 35 mm patella cemented. Persona left 10 mm CPS polyethylene insert Estimated Blood Loss: 300 mL Specimen Removed: Degenerative bone, meniscal tissue, cruciate tissue Description of Procedure: This patient was taken to the operating room after I had obtained informed consent discussing with her in review of the indications risks benefits limitations and potential complications of the surgery. Patient is well aware of having had multiple joint replacements in other extremities. Once informed consent was who for then for real experienced nurse that knows what nothing found reflecting panic and tired of the rojas under the have a year's worth of experience in that room with two scrub techs booking circulating select pockets and possible I give hit 2nd component of the of the patella adequate with a talked to her Tristan from exited Khushboo I will schedule cases like that if you can not give me a mean day of the try her but good attention the guide to be good at what you do and then by the time they are good the gone 2nd time with signed the patient was given intravenous antibiotics per protocol and then taken to the operating room where she was given a spinal anesthetic and placed in a supine position on the OR table the right leg was placed in an SCD the left leg was placed in a well-padded tourniquet that was not used during this case the left leg was now prepped and draped in usual sterile orthopaedic fashion surgical time-out was used in the and completed the case was begun. Ioban was used to protect the skin and anterior incision measuring 10 in was made a medial parapatellar approach was accomplished this was done with electrocautery. Hemostasis was achieved during the approach with electrocautery. The patella was inverted and found to have a significant contracture on the lateral side of the patella this did require a limited lateral release of the closure. There was excessive degenerative wearing of the entirety of the patella with large osteophytes. Osteotomy of the patella using a freehand technique was accomplished this was now sized to a 35 and drilled in preparation for implant skin was placed over this and placed allowing to be subluxed laterally to expose the distal femur. The distal femur was exposed found to have excessive wear of the lateral femoral condyle and incomplete overgrowth of the notch medullary canal was established with a drill medullary james was placed in a 6 degree valgus cut was made for the distal femur resection and extra 2 mm of bone. Proximal tibia was exposed by placing the knee and a hyperflexed position with an IM P leg rae retractors were placed medial and lateral and posterior aspect after release of the anterior and posterior cruciate ligaments and resection of the menisci have been completed medullary canal was established in the tibia medullary james was placed and bony cut of proximally 10 mm was made allowing just enough bone as there was significant erosion of the posterior lateral aspect of the tibial plateau. This area of hard cortical bone was drilled with a small drill bit to allow for cement interdigitation. The tibia was healed in preparation for the implant. Four in one cutting block was placed over the distal femur I used 0 of external rotation due to the tightness of the lateral compartment of the distal femur. This was sized to a size 10. Trial reduction of the implant with the tibial gave us excellent stability with a constrained liner with full extension. Patella however required a lateral release as discussed earlier. Fixation of the tibia was accomplished separately with a poly methylmethacrylate antibiotic impregnated. Once this had cured and all excess cement has removed in the femoral and patellar components were separately fixated with the similar technique. All excess cement was removed without difficulty. Trial reduction with a 10 mm constrained laterally achieved full extension and full flexion with the patella tracking very nicely. Definitive polyethylene insert was accomplished hemostasis had been achieved during the approach with electrocautery. This was supported with Vistaseal thrombin spray. 1 g of vancomycin powder was also placed in the knee. Closure was accomplished with interrupted sutures of Ethibond 2. Subcuticular closure was accomplished with 2-0 Vicryl in usual fashion. Skin was closed with skin yue. Sterile dressing was acticoat silver impregnated gauze was used and island dressings were placed. This point in time the anesthesiologist placed an indwelling catheter for the adductor canal block and also performed an IPAP block. Reinforcement of the dressings were placed patient was now transferred to the recovery room in stable condition there were no apparent perioperative complications good distal pulses and capillary refill were maintained throughout the case. Counts repoted as correct: Yes VIRGINIA MARTINEZ MD January 17, 2025 17:47
[2025-01-17] MEDS: ketorolac trometh 30MG/ML vial 30 MG/ML VIAL IV ONE (18:16)
[2025-01-17] MEDS: morphine 2 MG/ML inj. syringe IV PRN (18:17)
[2025-01-17] MEDS: ROPIVAcaine 0.2%/PF PUMP/bolus 545 ML ADDCANAL SCH ×2 (18:19→19:21)
[2025-01-17] MEDS ORDERED: clobetasol 0.05% cream 30gm TP PRN (19:50)
[2025-01-17] MEDS ORDERED: estrogens, conjug. vaginal cream 45gm tube VG PRN (19:50)
[2025-01-17] MEDS ORDERED: PSYLLIUM HUSK 0.4 GM PO PRN (19:50)
[2025-01-17] MEDS ORDERED: estrogen, conjugated 0.625mg tablet PO SCH ×2 (19:50→20:18)
--- NOTE | 2025-01-17 19:58 | RADIOLOGY REPORT ---
EXAM: DI KNEE LIMITED (AP/LAT) INDICATION: Postop LEFT TECHNIQUE: 2 views of the left knee COMPARISON: None FINDINGS: There are expected postoperative changes with surrounding soft tissue emphysema and soft tissue swell ing. No perioperative fracture. Overlying surgical yue. IMPRESSION: 1. Expected postoperative changes
[2025-01-17] MEDS: vancomycin/NS 1 GM ADD-VANTAGE 250 ML IV SCH (20:00)
[2025-01-17] MEDS: TRAMADOL HCL 300 MG PO SCH (21:00)
[2025-01-17] MEDS: docusate sod 250mg capsule PO SCH (22:01)
[2025-01-17] MEDS: duloxetine 30mg CAPSULE.DR PO SCH (22:02)
[2025-01-17] MEDS: pregabalin 25mg capsule PO SCH (22:03)
[2025-01-17] MEDS: acetaminophen 325mg tablet PO SCH (22:04)
[2025-01-17] MEDS: sennosides 8.6mg tablet PO SCH (22:05)
[2025-01-17] MEDS: gabapentin 300mg capsule PO SCH (22:05)
[2025-01-17] MEDS: oxybutynin 5mg tablet PO SCH (22:06)
[2025-01-17] MEDS: amitriptyline 25mg tablet PO SCH (22:07)
[2025-01-17] MEDS: tranexamic acid inj. 1,100 MG in normal saline 100ml IV soln 89 ML IV ONE (22:10)
[2025-01-17] MEDS: oxyCODONE IR 5mg (immed. release) tablet PO PRN (23:15)
[2025-01-18] MEDS: potassium Cl 20mEq in NS 1,000 ML IV SCH (01:25)
[2025-01-18] MEDS: vancomycin/NS 1 GM ADD-VANTAGE 250 ML IV SCH (01:33)
[2025-01-18 02:00] VITALS: BP 116/68; PULSE 68; RESP 16; TEMP 98.5; O2SAT 93
--- NOTE | 2025-01-18 03:12 | CONSULTATION REPORT - RESIDENT ---
Consult Providers to CC Resident Creating Document: DINESH ROMERO RES History of Present Illness Reason for Admit\Complaint: s/p left total knee replacement History of Present Illness This is a 64-year-old female with history of hypertension, hyperlipidemia Sztiqnu-Qnqdg-Qagfc disorder was admitted for left total knee replacement by Dr. Stark, done on 01/17/2025. Patient is seen in ortho floor. She is comfortably lying on the bed. Denies any pain. She did not have a bowel movement yet but passed gas. She had some Jell-O, denies any nausea or vomiting. Her Labs and home medications has been reviewed, continued home medications. Allergies: Coded Allergies: tetracycline (Verified Allergy, Intermediate, HIVES, 01/06/18) codeine (Verified Adverse Reaction, Mild, STOMACH CRAMPS, 02/01/18) Home Medications Home Medications Active Reported PREMARIN Vaginal Cream (Estrogens,Conjugated) 0.625 Mg/Gram Appl 1 Applic VG DAILY PRN Synthroid (Levothyroxine Sodium) 125 Mcg Tablet 1 Tab PO DAILY 30 Days Amitriptyline Hcl 25 Mg Tablet 1 Tab PO HS 30 Days Calcium 600 + Vit D 800 Tab (Calcium Carbonate/Vitamin D3) 1 Each Tablet 1 Tab PO DAILY Diltiazem 24Hr ER (Diltiazem HCl) 240 Mg Cap.er.24h 1 Cap PO DAILY Aspirin EC (Aspirin) 81 Mg Tablet.dr 1 Tab PO DAILY 30 Days Clobetasol Emollient 0.05% Crm (Clobetasol Propionate) 15 Gm Cream..g. 1 Applic TOP Q12H PRN 15 Days Baclofen 10 Mg Tablet 1 Tablet PO DAILY Magnesium (Magnesium Oxide) 400 Mg Capsule 250 Mg PO DAILY Metamucil (Psyllium Husk) 0.4 Gm Capsule 1 Cap PO Q12H PRN Zetia (Ezetimibe) 10 Mg Tablet 1 Tab PO DAILY Atorvastatin Calcium 80 Mg Tablet 1 Tab PO DAILY Docusate Sodium 250 Mg Capsule 1 Cap PO BID 30 Days One-A-Day Essential (Multivitamin) 1 Each Tablet 1 Tab PO DAILY 30 Days Premarin* (Estrogens Conjugated) 0.625 Mg Tablet 1 Tab PO Q2D 30 Days Vesicare (Solifenacin Succinate) 10 Mg Tablet 1 Tab PO DAILY Duloxetine HCl 60 Mg Capsule.dr 1 Cap PO BID Tramadol Hcl Er (Tramadol Hcl) 300 Mg Tab.er.24h 1 Tab PO HS Celecoxib 200 Mg Capsule 1 Cap PO DAILY Lyrica (Pregabalin) 100 Mg Capsule 1 Cap PO BID Past Medical History Past Medical History Hypertension Hyperlipidemia Bsszlaj-Alfds-Dsrok disorder Past Surgical History Surgical History Comment History of bilateral shoulder replacement History of bilateral hip replacement History of right total knee replacement Past Social History Social History Comment Has been smoking for the last 20 years, smokes about 5-7 cigarettes per day Denies any alcohol use Denies any drug use Lives with her Exam Vitals: Vital Signs Date Time Temp Pulse Resp B/P (MAP) Pulse Ox O2 Delivery O2 Flow Rate FiO2 01/18/25 00:15 16 01/17/25 22:00 98.1 69 131/60 (83) 95 Room Air 01/17/25 18:50 2.0 General: General: Awake and Alert, no acute distress. HEENT: Conjunctiva pink, Sclera clear, Mucus Membranes moist. Resp: Bilateral lung sounds are clear. Heart: Regular Rate and rhythm, normal S1 and S2 without murmur, rub or gallop. Abdomen: No tenderness, no guarding, no rigidity, bowel sounds heard Extremities: Left knee-no signs of infection at the surgical site FASHION PHOTOGRAPHER: Conscious, coherent, oriented x3. No motor or sensory deficits. No cranial nerve deficits Skin: Warm and Dry. No purpura noted, Additional Plan Assessment This is a 64-year-old female with history of hypertension hyperlipidemia, admitted for left knee total replacement. Hospitalist team has been consulted for management. Plan s/p left total knee replacement POD#1 Left knee no signs of infection. CBC and BMP ordered On antibiotics cefazolin Bowel sounds present, passed bowel gas, No nausea and vomiting. DVT prophylaxis-enoxaparin sodium History of hypertension Continued patient's home medication diltiazem 240 mg daily History of hyperlipidemia Continued patient's home medication atorvastatin 80 mg daily and ezetimibe 10 mg daily History of hypothyroidism Continued patient's home medication levothyroxine Code status: Full code DVT prophylaxis: Lovenox Diet: Regular Dinesh Romero M.D PGY1 Date of Service: January 18, 2025 Billing Provider: CHARLI MARQUEZ MD, PRAVAHIKA, RES January 18, 2025 03:12
[2025-01-18] MEDS: ceFAZolin/D5W- 1GM premix 50 ML IV SCH (03:54)
[2025-01-18] MEDS: oxyCODONE IR 5mg (immed. release) tablet PO PRN (05:34)
[2025-01-18 06:00] VITALS: BP 124/60; PULSE 68; RESP 16; TEMP 98.3; O2SAT 96
[2025-01-18 06:29] LABS: BASOPHILS % (AUTO) 0.2 % (0-1); EOSINOPHILS % (AUTO) 0 % (0-6); HEMATOCRIT 32.1 % (35.0-45.0); HEMOGLOBIN 10.6 g/dl (12.0-16.0); LYMPHOCYTES # (AUTO) 1.1 X10'3 (1.1-4.8); LYMPHOCYTES % (AUTO) 6.8 % (21-51); MEAN CORPUSCULAR HEMOGLOBIN 30.5 PG (27.0-31.0); MEAN CORPUSCULAR HGB CONC 33.1 g/dL (33.0-36.5); MEAN CORPUSCULAR VOLUME 92.1 FL (78-98); MEAN PLATELET VOLUME 6.9 FL (7.4-10.4); MONOCYTES # (AUTO) 0.9 X10'3 (0-0.9); MONOCYTES % (AUTO) 5.5 % (2-12); NEUTROPHILS # (AUTO) 13.7 X10'3 (1.8-7.7); NEUTROPHILS % (AUTO) 87.5 % (42-75); PLATELET COUNT 382 X10'3 (140-440); RED BLOOD COUNT 3.48 X10'6 (4.20-5.60); RED CELL DISTRIBUTION WIDTH 14.6 % (11.5-14.5); WHITE BLOOD COUNT 15.7 X10'3 (4.5-11.0)
[2025-01-18 06:56] LABS: ALBUMIN 2.5 G/DL (3.4-5.0); ANION GAP 8 (8-16); BLOOD UREA NITROGEN 10 MG/DL (7-18); BUN/CREATININE RATIO 12.3 (10.0-20.0); CALCIUM 7.8 MG/DL (8.5-10.1); CHLORIDE 104 MMOL/L (99-107); CHOL/HDL RATIO 1.9 (0.00-4.99); CHOLESTEROL 101 MG/DL (0-200); CREATININE 0.81 MG/DL (0.40-0.90); GLUCOSE 148 MG/DL (70-104); HDL CHOLESTEROL 52 MG/DL (35-60); LDL CHOLESTEROL 40 MG/DL (50-100); POTASSIUM 4.1 MMOL/L (3.5-5.1); SODIUM 137 MMOL/L (135-145); THYROID STIMULATING HORMONE 1.05 ulU/ml (0.34-4.50); TOTAL CARBON DIOXIDE 25.1 MMOL/L (24-32); TRIGLYCERIDES 42 MG/DL (20-135); eCRCL 67 ML/MIN; eGFR 71 ML/MIN
[2025-01-18 07:26] LABS: HEMOGLOBIN A1C 6.2 % (4.5-6.2)
[2025-01-18] MEDS: calcium carbonate/vitamin D3 tablet PO SCH (08:58)
[2025-01-18] MEDS: multivitamins, therapeutics tablet PO SCH (08:58)
[2025-01-18] MEDS: ezetimibe 10mg tablet PO SCH (08:58)
[2025-01-18] MEDS: magnesium oxide 400mg tablet PO SCH (08:58)
[2025-01-18] MEDS: levoTHYROXINE 125mcg tablet PO SCH (08:58)
[2025-01-18] MEDS: atorvastatin 20mg tablet PO SCH (08:59)
[2025-01-18] MEDS: celeCOXIB 100mg capsule PO SCH (08:59)
[2025-01-18] MEDS: baclofen 10mg tablet PO SCH (08:59)
[2025-01-18] MEDS: enoxaparin 40mg/0.4ml syringe SQ SCH (09:00)
[2025-01-18] MEDS: diltiazem CD 120mg capsule (once-daily) PO SCH (09:00)
[2025-01-18] MEDS: estrogen, conjugated 0.625mg tablet PO SCH ×2 (09:07→21:31)
[2025-01-18 10:00] VITALS: BP 115/78; PULSE 71; RESP 17; TEMP 98.4; O2SAT 95
--- NOTE | 2025-01-18 12:03 | PROGRESS NOTE- Residence ---
Progress Note - Resident Providers to CC Resident Creating Document: MAXIMINO ISRAEL RES ~ Central Line/PICC still needed: No Ramirez-Non Protocol Ramirez Indications Met/Not Met: F/C Indications Not Met Antibiotic Timeout Antibiotic Ordered?: No Subjective Patient has no acute distress. Denies any pain currently. and daughter at bedside. Objective Vital Signs Date Time Temp Pulse Resp B/P (MAP) Pulse Ox O2 Delivery O2 Flow Rate FiO2 01/18/25 07:40 Room Air 01/18/25 06:00 98.3 68 16 124/60 (81) 96 01/17/25 19:00 2.0 Result Diagram: 01/18/2560201/18/25 06 General: Awake and Alert, no acute distress. HEENT: Conjunctiva pink, Sclera clear, Mucus Membranes moist. Resp: Unlabored. Lungs clear to auscultation bilaterally. Heart: Regular Rate and rhythm, normal S1 and S2 without murmur, rub or gallop. Abdomen: Soft and non tender no organomegaly Extremities: No cyanosis,clubbing or edema. Right lower limb also in a cast from her CMT. Left lower limb in a cast, off loaded. Skin: Warm and Dry. Assessment Assessment This is a 64-year-old female with history of hypertension hyperlipidemia, admitted for left knee total replacement. Hospitalist team has been consulted for management. Plan Plan S/p left total knee replacement POD#1 01/17/25: Left knee no signs of infection. CBC and BMP ordered On antibiotics cefazolin Bowel sounds present, passed bowel gas, No nausea and vomiting. DVT prophylaxis-enoxaparin sodium 01/18/25: Mild postoperative leukocytosis noted, hemodynamically stable with no febrile episodes. Continue monitoring the patient Bowel regimen with Dulcolax suppository p.r.n. PRN oxy IR 5 mg q.4 PRN for moderate pain and 10 mg q.4 PRN for severe pain on board as per Dr Stark History of hypertension Well-controlled Continued patient's home medication diltiazem 240 mg daily History of hyperlipidemia Continued patient's home medication atorvastatin 80 mg daily and ezetimibe 10 mg daily History of hypothyroidism Continued patient's home medication levothyroxine Code status: Full code DVT prophylaxis: Lovenox Diet: Regular Disposition: Continue pain management and monitoring. Baseline- uses a four wheeled walker. Possible discharge to rehab tomorrow. Maximino Israel PGY2, Internal medicine resident Date of Service: January 18, 2025 Billing Provider: SARAI WINTERS MD Common Visit Codes: [id number] INP/OBS CARE(HIGH) MAXIMINO ISRAEL, JUDIE January 18, 2025 12:03 SARAI WINTERS MD January 18, 2025 18:36
[2025-01-18] MEDS ORDERED: PREMARIN PO (19:25)
[2025-01-18] MEDS ORDERED: celeCOXIB 100mg capsule PO SCH (20:00)
[2025-01-19 01:01] VITALS: RESP 15; O2SAT 96
[2025-01-19 06:00] VITALS: BP 135/61; PULSE 74; RESP 16; TEMP 97.7; O2SAT 95
[2025-01-19 06:47] LABS: BASOPHILS # (AUTO) 0.1 X10'3 (0-0.2); BASOPHILS % (AUTO) 0.8 % (0-1); EOSINOPHILS # (AUTO) 0.6 X10'3 (0-0.9); EOSINOPHILS % (AUTO) 4.5 % (0-6); HEMATOCRIT 29.4 % (35.0-45.0); HEMOGLOBIN 9.6 g/dl (12.0-16.0); LYMPHOCYTES # (AUTO) 2.7 X10'3 (1.1-4.8); LYMPHOCYTES % (AUTO) 20.2 % (21-51); MEAN CORPUSCULAR HGB CONC 32.7 g/dL (33.0-36.5); MEAN CORPUSCULAR VOLUME 91.9 FL (78-98); MEAN PLATELET VOLUME 6.9 FL (7.4-10.4); MONOCYTES # (AUTO) 1.6 X10'3 (0-0.9); NEUTROPHILS # (AUTO) 8.5 X10'3 (1.8-7.7); NEUTROPHILS % (AUTO) 62.5 % (42-75); PLATELET COUNT 334 X10'3 (140-440); RED CELL DISTRIBUTION WIDTH 14.7 % (11.5-14.5); WHITE BLOOD COUNT 13.6 X10'3 (4.5-11.0)
[2025-01-19 07:05] LABS: ALBUMIN 2.5 G/DL (3.4-5.0); ANION GAP 5 (8-16); BLOOD UREA NITROGEN 12 MG/DL (7-18); BUN/CREATININE RATIO 18.8 (10.0-20.0); CALCIUM 7.9 MG/DL (8.5-10.1); CHLORIDE 112 MMOL/L (99-107); CREATININE 0.64 MG/DL (0.40-0.90); GLUCOSE 109 MG/DL (70-104); POTASSIUM 4.4 MMOL/L (3.5-5.1); SODIUM 146 MMOL/L (135-145); TOTAL CARBON DIOXIDE 29.1 MMOL/L (24-32); eCRCL 85 ML/MIN; eGFR > 90 ML/MIN
[2025-01-19 10:00] VITALS: BP 110/51; PULSE 85; RESP 16; TEMP 98; O2SAT 95
[2025-01-19] MEDS ORDERED: traMADol 50MG tablet PO PRN ×2 (11:45)
--- NOTE | 2025-01-19 14:49 | PROGRESS NOTE- Residence ---
Progress Note - Resident Providers to CC Resident Creating Document: MAXIMINO ISRAEL RES ~ Central Line/PICC still needed: No Ramirez-Non Protocol Ramirez Indications Met/Not Met: F/C Indications Not Met Antibiotic Timeout Antibiotic Ordered?: No MRSA Education MRSA Education Provided to pt: No Subjective Patient seems to be in distress as she states that she has lost a few family members this week and would like to go home. Physical therapy requires two more days to be able to work with the patient and plan for discharge back home. Otherwise no other acute complaints or overnight events. Objective Vital Signs Date Time Temp Pulse Resp B/P (MAP) Pulse Ox O2 Delivery O2 Flow Rate FiO2 01/19/25 10:00 98.0 85 16 110/51 (70) 95 Room Air 01/17/25 19:00 2.0 Result Diagram: 01/19/25 0553 01/19/25 0553 General: Awake and Alert, no acute distress. HEENT: Conjunctiva pink, Sclera clear, Mucus Membranes moist. Resp: Unlabored. Lungs clear to auscultation bilaterally. Heart: Regular Rate and rhythm, normal S1 and S2 without murmur, rub or gallop. Abdomen: Soft and non tender no organomegaly Extremities: No cyanosis,clubbing or edema. Right lower limb also in a cast from her CMT. Left knee dressing soiled with blood. Skin: Warm and Dry. Assessment Assessment This is a 64-year-old female with history of hypertension, hyperlipidemia, admitted for left knee total replacement. Hospitalist team has been consulted for management. Plan Plan S/p left total knee replacement POD#1 01/17/25: Left knee no signs of infection. CBC and BMP ordered On antibiotics cefazolin Bowel sounds present, passed bowel gas, No nausea and vomiting. DVT prophylaxis-enoxaparin sodium 01/18/25: Mild postoperative leukocytosis noted, hemodynamically stable with no febrile episodes. Continue monitoring the patient Bowel regimen with Dulcolax suppository p.r.n. PRN oxy IR 5 mg q.4 PRN for moderate pain and 10 mg q.4 PRN for severe pain on board as per Dr Stark 01/19/2025: CBC reveals improving leukocytosis. Drop in hemoglobin noted today; dressing was soiled with blood. Current hemoglobin 9.6 from 10.6 yesterday Hold Lovenox. Pain control with Tylenol and tramadol 50 mg q.4-6 hours. Patient can not tolerate Percocet, it has not been taking it PT eval and treat; plan for discharge back home in two days. History of hypertension Well-controlled Continued patient's home medication diltiazem 240 mg daily History of hyperlipidemia Continued patient's home medication atorvastatin 80 mg daily and ezetimibe 10 mg daily History of hypothyroidism Continued patient's home medication levothyroxine Code status: Full code DVT prophylaxis: Hold Lovenox Diet: Regular Disposition: Continue physical therapy. Patient would like to be able to go home and does not want to consider rehab. She would like to be evaluated and managed by outpatient physical therapy close to her home which is [place]. Hold Lovenox as her hemoglobin dropped today. Hold it until her H&H improves. She requires sequential CBC every 2-3 days as well after she gets discharged to monitor for a hemoglobin as she would require DVT prophylaxis at home as well. Maximino Israel PGY2, Internal medicine resident Date of Service: January 19, 2025 Billing Provider: LULA DELA CRUZ MD Common Visit Codes: [id number] INP/OBS CARE(HIGH) MAXIMINO ISRAEL, JUDIE January 19, 2025 14:49 LULA DELA CRUZ MD January 19, 2025 21:09
[2025-01-19 18:00] VITALS: BP 148/63; PULSE 87; RESP 16; TEMP 97.8; O2SAT 98
[2025-01-19 20:00] VITALS: RESP 16; O2SAT 98
[2025-01-19] MEDS: acetaminophen 325mg tablet PO PRN (20:28)
[2025-01-19 22:00] VITALS: BP 131/64; PULSE 91; RESP 16; TEMP 98.8; O2SAT 98
[2025-01-20 05:00] VITALS: BP 127/62; PULSE 95; RESP 16; TEMP 98.7; O2SAT 95
[2025-01-20 06:50] LABS: BASOPHILS # (AUTO) 0.1 X10'3 (0-0.2); BASOPHILS % (AUTO) 0.6 % (0-1); EOSINOPHILS # (AUTO) 0.7 X10'3 (0-0.9); EOSINOPHILS % (AUTO) 4.9 % (0-6); HEMATOCRIT 29.5 % (35.0-45.0); HEMOGLOBIN 9.7 g/dl (12.0-16.0); LYMPHOCYTES # (AUTO) 2.3 X10'3 (1.1-4.8); LYMPHOCYTES % (AUTO) 16.3 % (21-51); MEAN CORPUSCULAR HEMOGLOBIN 30.2 PG (27.0-31.0); MEAN CORPUSCULAR VOLUME 91.5 FL (78-98); MEAN PLATELET VOLUME 7.1 FL (7.4-10.4); MONOCYTES # (AUTO) 1.4 X10'3 (0-0.9); MONOCYTES % (AUTO) 9.9 % (2-12); NEUTROPHILS # (AUTO) 9.5 X10'3 (1.8-7.7); NEUTROPHILS % (AUTO) 68.3 % (42-75); PLATELET COUNT 353 X10'3 (140-440); RED BLOOD COUNT 3.22 X10'6 (4.20-5.60); RED CELL DISTRIBUTION WIDTH 14.8 % (11.5-14.5)
[2025-01-20 07:13] LABS: ALBUMIN 2.4 G/DL (3.4-5.0); ANION GAP 5 (8-16); BLOOD UREA NITROGEN 11 MG/DL (7-18); BUN/CREATININE RATIO 16.9 (10.0-20.0); CHLORIDE 107 MMOL/L (99-107); CREATININE 0.65 MG/DL (0.40-0.90); GLUCOSE 106 MG/DL (70-104); POTASSIUM 4.6 MMOL/L (3.5-5.1); SODIUM 141 MMOL/L (135-145); TOTAL CARBON DIOXIDE 29.1 MMOL/L (24-32); eCRCL 84 ML/MIN; eGFR > 90 ML/MIN
[2025-01-20 10:00] VITALS: BP 113/70; PULSE 93; RESP 16; TEMP 98; O2SAT 96
--- NOTE | 2025-01-24 11:20 | DISCHARGE SUMMARY-Residence ---
Discharge Summary Providers to Resident Creating Document: NAYELI BREEN RES ~ Discharge Summary Admission Diagnosis: Severe degenerative joint disease left knee with 30 degree valgus deformity Hospital Course DATE OF ADMISSION: 01/17/25 DATE OF DISCHARGE: 01/20/25 Discharge Diagnosis\Comment: Status post left total knee replacement History of hypertension, hyperlipidemia, hypothyroidism, CMT disease Operations\Procedures: Left total knee replacement Consultants: Dr. Stark Complications: None Condition on DC: Stable for transfer Discharge Summary: This is a 64-year-old female with history of hypertension, hyperlipidemia, admitted for left knee total replacement. Hospitalist team was consulted for pain management and evaluation for discharge planning. Surgery was performed on 01/17/2025. Patient had severe degenerative joint disease of the left knee with 30 valgus deformity. Intraoperative findings included severe tricompartmental eruptive degenerative joint disease with a valgus deformity. The following procedures were performed- Filipe persona knee systems left posterior stabilize size 10 standard femur cemented. Persona left size F tibia cemented. Persona + 30 mm stem extension for the tibial component. Persona 35 mm patella cemented. Persona left 10 mm CPS polyethylene insert. Surgeon was Dr. Stark. Post surgical pain management was done by Tylenol and tramadol as the patient could not tolerate Percocet. Physical therapy recommended post acute care. The rest of her chronic medical conditions were managed with home medications. After remaining medically stable, she was cleared for discharged to [facility]. Advised at discharge: Continue daily physical therapy. Fall precautions. Lovenox 30 mg subQ for DVT prophylaxis. CBC and CMP in 2-3 days. [facility] MD to take over care. Follow up with PCP and Dr. Stark in 1-2 weeks. Wound care Physical exam at discharge: General: Awake and Alert, no acute distress. HEENT: Conjunctiva pink, Sclera clear, Mucus Membranes moist. Resp: Unlabored. Lungs clear to auscultation bilaterally. Heart: Regular Rate and rhythm, normal S1 and S2 without murmur, rub or gallop. Abdomen: Soft and non tender no organomegaly Extremities: No cyanosis,clubbing or edema. Right lower limb also in a cast from her CMT. Left knee dressing soiled with blood. Skin: Warm and Dry. Labs at discharge: WBC 62241, RBC 3.2, hemoglobin 9.7, platelets 353 Sodium 141, potassium 4.6, chloride 107, bicarb 29.1, BUN 11, creatinine 0.6, blood glucose 106 Medications at discharge: Lovenox 30 mg SQ, tramadol 50 mg q.4 PRN, Celebrex 200 mg b.i.d., multivitamins, Cardizem 240 mg daily, calcium/vitamin-D tabs, atorvastatin 80 mg daily, levothyroxine 125 mcg daily, Zetia 10 mg daily, baclofen 10 mg daily, oxybutynin 5 mg t.i.d., amitriptyline 25 mg HS, senna, Lyrica 100 mg b.i.d., duloxetine 60 mg b.i.d., VESIcare 10 mg, Colace b.i.d., clobetasol cream *Problems/Diagnosis: (1) Total knee replacement status Total Time Spent on D/C: Up to 30 Minutes Addendum ac anemia 2 to ac bl loss 2 to sx Date of Service: January 20, 2025 Billing Provider: LULA DELA CRUZ MD Common Visit Codes: 13327-OBI/OBS DISCH DAY >30min Problem Qualifiers (1) Total knee replacement status: Laterality: left Qualified Codes: Z96.652 - Presence of left artificial knee joint NAYELI BREEN, RES Jan 24, 2025 11:18 LULA DELA CRUZ MD Jan 24, 2025 22:29
== END 2025-01-20 14:00 | DRG 470 ==
LOC: PAS IN 09:44 → ORTHO 4S 19:00
PROVIDERS: ADMIT Orthopaedic Surgery; ATTEND Orthopaedic Surgery
PROC: 0SRD0J9 Replacement of Left Knee Joint with Synthetic Substitute, Cemented, Open Approach (ICD-10-PCS; principal; 2025-01-17 13:05)
DX: M17.12 Unilateral primary osteoarthritis, left knee (principal); I10 Essential (primary) hypertension; E78.5 Hyperlipidemia, unspecified; E03.9 Hypothyroidism, unspecified; D72.829 Elevated white blood cell count, unspecified; Z79.899 Other long term (current) drug therapy
CPT/HCPCS: 36415; 73560; 80048; 80053; 80061; 82948; 83036; 84443; 85025; 87081; 97110; 97116; 97161; 97530; A4215; A4615; A6253; A6258; A6449; A6454; A7000; C1713; C1776; C9250; G0378; J0690; J1650; J1885; J2250; J2270; J2795; J3010; J3370; J3372; J3480; J3490; J7120

== ENCOUNTER 2025-01-24 14:43 | Emergency (ER) | payer MEDICARE, BC ==
[~2025-01-24] VITALS: Ht 171.4 cm; Wt 113.6 kg
[~2025-01-24 14:43] MED LIST changes: -ESTR0.6261 PO; +PREMARIN PO; -PREVCR VG; -tetracaine 1% (10mg/ml) pres. free inj. ONE
[2025-01-24 14:46] VITALS: RESP 18; TEMP 97.1
[2025-01-24 16:50] VITALS: BP 158/87; PULSE 72; O2SAT 96
--- NOTE | 2025-01-24 17:34 | Physician Documentation ---
History of Present Illness ~ Chief Complaint: Post-operative complication Stated Complaint: POST OP COMPLICATIONS FALL Time Seen by MD: 15:36 Primary Medical Doctor: HEAVEN HPI Patient has a total knee replacement done on January 18, [address] Stark. Two days ago she fell landed on her buttocks and her knee bent. She has noted drainage from the incision since. No fever or chills she is keeping it elevated but not at night. Medication Reconciliation Allergies: Coded Allergies: tetracycline (Verified Allergy, Intermediate, HIVES, 01/06/18) codeine (Verified Adverse Reaction, Mild, STOMACH CRAMPS, 02/01/18) Scheduled Amitriptyline Hcl (Amitriptyline Hcl), 1 TAB PO HS, (Reported) Aspirin (Aspirin EC), 1 TAB PO DAILY, (Reported) Atorvastatin Calcium (Atorvastatin Calcium), 1 TAB PO DAILY, (Reported) Baclofen (Baclofen), 1 TABLET PO DAILY, (Reported) Calcium Carbonate/Vitamin D3 (Calcium 600 + Vit D 800 Tab), 1 TAB PO DAILY, (Reported) Celecoxib (Celecoxib), 1 CAP PO DAILY, (Reported) Diltiazem HCl (Diltiazem 24Hr ER), 1 CAP PO DAILY, (Reported) Docusate Sodium (Docusate Sodium), 1 CAP PO BID, (Reported) Duloxetine HCl (Duloxetine HCl), 1 CAP PO BID, (Reported) Ezetimibe (Zetia), 1 TAB PO DAILY, (Reported) Levothyroxine Sodium (Synthroid), 1 TAB PO DAILY, (Reported) Magnesium Oxide (Magnesium), 250 MG PO DAILY, (Reported) Multivitamin (One-A-Day Essential), 1 TAB PO DAILY, (Reported) Pregabalin (Lyrica), 1 CAP PO BID, (Reported) Solifenacin Succinate (Vesicare), 1 TAB PO DAILY, (Reported) Tramadol Hcl (Tramadol Hcl Er), 1 TAB PO HS, (Reported) [Premarin], 0.625 MG PO HS, (Reported) Scheduled PRN Clobetasol Propionate/Emoll (Clobetasol Emollient 0.05% Crm), 1 APPLIC TOP Q12H PRN for itching, (Reported) Psyllium Husk (Metamucil), 1 CAP PO Q12H PRN for constipation, (Reported) Discontinued Medications Estrogens,Conjugated (PREMARIN Vaginal Cream), 1 APPLIC VG DAILY PRN for RHIANNON, (Reported) Discontinued Reason: wrong med Estrogens,Conjugated* (Premarin*), 1 TAB PO Q2D, (Reported) Discontinued Reason: wrong med Past Medical History Past Medical History: Hypertension, *MUSCULOSKELETAL* Past Surgical History: orthopedic surgeries Drug Use: none Lives In: Home Physical Exam Vital Signs: Temperature: 97.1, Source: Temporal, Heart Rate: 72, Respiratory Rate: 18, BP: 158/87, Pulse Oximetry: 96, Weight: 113.640 Oxygen Flow Rate: 0 Physical Exam General: Awake and Alert, no acute distress. HEENT: Conjunctiva pink, Sclera clear, Neck: Supple Resp: Unlabored. Heart: Good perfusion Abdomen: Nondistended Extremities: She has a midline incision over the anterior aspect of her left knee. The wound is intact with serosanguineous drainage. He has no signs of infection and no bleeding. Skin: Warm and Dry. Neuro: no focal deficits Progress Results/Orders Results/Orders Orders - ABHIJIT STRONG MD Knee, Complete (01/24/25 15:41) Completed Orders - ABHIJIT STRONG MD Knee, Complete (01/24/25 15:41) Vital Signs 01/24/25 01/24/25 01/24/25 14:46 15:45 16:50 Temp 97.1 Pulse 86 72 Resp 18 B/P (MAP) 145/86 158/87 (110) Pulse Ox 97 96 O2 Flow Rate 0 Medical Decision Making Findings Patient is here with increased venous from her knee after a fall. She is status post total knee replacement on January 18, 2025. X-ray does not show acute abnormalities. The wound is intact that has no signs of dehiscence she only has a serosanguineous drainage no signs of infection. After I reviewed the x-ray called Dr. Stark. He is said to have the patient's wear the knee immobilizer at all times and he will see her next week. Departure Disposition: HOME / SELF CARE / HOMELESS Impression: Primary Impression: Total knee replacement status Qualified Codes: Z96.652 - Presence of left artificial knee joint Condition: Stable Discharge Instructions: Total Knee Replacement, Care After Additional Instructions: Dr. Stark says to keep the knee immobilizer on all times until he sees you next week. You also need to keep this elevated. Returned for increased pain fever or redness or any concerns. Referrals: NO PRIMARY CARE PROVIDER (PCP) Education Educated: Patient, Family Educated regarding: diagnosis, treatment, prognosis, need for follow up Signature Scribe Signature: no scribe Attestation: no scribe ABHIJIT STRONG MD Jan 24, 2025 17:34
--- NOTE | 2025-01-24 19:20 | RADIOLOGY REPORT ---
LEFT KNEE 4 VIEWS REASON FOR EXAM: post-op and fall TECHNIQUE: AP, tunnel view, sunrise view, and cross-table lateral view are submitted for review. COMPARISON: Left knee 01/17/2025 FINDINGS: There is total knee arthroplasty. Previously demonstrated air within the soft tissues has r esolved. There is at least a small knee effusion. There is no acute fracture or dislocation. There is severe soft tissue swelling about the knee, increased compared with the prior study. IMPRESSION: knee arthroplasty. Total No acute right knee fracture or dislocation. Severe soft tissue swelling about the knee, increased compared with the prior study. Previously demonstrated air within the soft tissues has resolved .
== END 2025-01-24 18:36 | disposition home or self-care (01) ==
LOC: ER 14:43
DX: Z96.652 Presence of left artificial knee joint (principal); I10 Essential (primary) hypertension; Z88.1 Allergy status to other antibiotic agents; Z88.5 Allergy status to narcotic agent; Z88.8 Allergy status to other drugs, medicaments and biological substances
CPT/HCPCS: 29505; 73564; 99283; A6253; A6258; A6402; A6449